=== PATIENT | male | born 1950 | race Caucasian/White ===

== ENCOUNTER 2017-02-17 12:39 | Outpatient (CLI) | payer MEDICARE ==
[~2017-02-17] VITALS: Ht 177.8 cm; Wt 94.3 kg
[~2017-02-17 12:39] MED LIST: DOXY100C2 PO; FAMO-119 PO; HYDR-87 PO; OMEP40CA36 PO; SUCR1ORA5 PO
[2017-02-17] MEDS ORDERED: ATOR10TA66 PO (12:42)
[2017-02-17] MEDS ORDERED: METF500T4 PO (12:42)
== END 2017-02-17 12:54 ==
LOC: PREOP 12:39
PROVIDERS: ATTEND Surgery
DX: Z01.818 Encounter for other preprocedural examination (principal); Z12.11 Encounter for screening for malignant neoplasm of colon

== ENCOUNTER 2017-02-21 08:51 | Day surgery (SDC) | payer MEDICARE ==
[~2017-02-21] VITALS: Ht 177.8 cm; Wt 94.3 kg
[~2017-02-21 08:51] MED LIST changes: +ATOR10TA66 PO; +METF500T4 PO
[2017-02-21] MEDS ORDERED: NS IV 500 ML 500 ML ONE (08:53)
[2017-02-21] MEDS ORDERED: NS IV 500 ML 500 ML IV PRN (09:25)
[2017-02-21 09:30] VITALS: BP 137/89
[2017-02-21] MEDS ORDERED: FLUMAZENIL (ROMAZICON) 0.1 MG/ML 5 ML VIAL INJ PRN (09:30)
[2017-02-21] MEDS ORDERED: NALOXONE 0.4 MG/ML 1 ML (NARCAN) VIAL IVP PRN (09:30)
--- NOTE | 2017-02-21 10:03 | Conscious Sedation/ASA ---
Conscious Sedation Pre-Proced Time Reviewed: 10:03 ASA Class: 2 Airway Mallampati Classification: ([place] appropriate class) I. II. III, IV Lungs Heart ASA score ASA 1: a normal healthy patient ASA 2: a patient with a mild systemic disease (mid diabetes, controlled hypertension, obesity ASA 3: a patient with a severe systemic disease that limits activity (angina , COPD, prior Myocardial infarction) ASA 4: a patient with an incapacitating disease that is a constant threat to life (CHF, renal failure) ASA 5: a moribund patient not expected to survive 24 hrs. (ruptured aneurysm) ASA 6: a declared brain patient whose organs are being harvested. For emergent operations, add the letter E after the classification Grade 1 Sedation Plan: Discussed options with patient/fam Note The patient is an appropriate candidate to undergo the planned procedure, sedation, and anesthesia. The patient immediately re-assessed prior to indication. MARGARET ARROYO MD Feb 21, 2017 10:03 am
[2017-02-21] MEDS ORDERED: MIDAZOLAM 2 MG/2 ML (VERSED) VIAL ONE ×3 (10:16)
[2017-02-21] MEDS ORDERED: fentaNYL INJECTION 100 MCG/2 ML AMP ONE (10:17)
[2017-02-21] MEDS: fentaNYL INJECTION 100 MCG/2 ML AMP IVP PRN ×2 (10:27→10:35)
[2017-02-21] MEDS: MIDAZOLAM 2 MG/2 ML (VERSED) VIAL IVP PRN ×2 (10:30→10:37)
--- NOTE | 2017-02-21 10:54 | Conscious Sedation/ASA ---
Conscious Sedation Pre-Proced Time Reviewed: 10:03 ASA Class: 2 Airway Mallampati Classification: ([place] appropriate class) I. II. III, IV Lungs Heart ASA score ASA 1: a normal healthy patient ASA 2: a patient with a mild systemic disease (mid diabetes, controlled hypertension, obesity ASA 3: a patient with a severe systemic disease that limits activity (angina , COPD, prior Myocardial infarction) ASA 4: a patient with an incapacitating disease that is a constant threat to life (CHF, renal failure) ASA 5: a moribund patient not expected to survive 24 hrs. (ruptured aneurysm) ASA 6: a declared brain patient whose organs are being harvested. For emergent operations, add the letter E after the classification Grade 2 Sedation Plan: Discussed options with patient/fam Note The patient is an appropriate candidate to undergo the planned procedure, sedation, and anesthesia. The patient immediately re-assessed prior to indication. MARGARET ARROYO MD Feb 21, 2017 10:54 am
--- NOTE | 2017-02-21 10:55 | Endoscopy Procedure Report ---
Endoscopy Report Date: Feb 21, 2017 Preoperative Diagnosis: Personal history of polyps. Family history of colon cancer Study Performed: Colonoscopy Procedure Instrument: Colonoscope Endo Procedure/Findings Findings 1.: Diverticulosis Recommendations: Recommendations: 1.: Colonscopy in 3 years Copy Copies To 1: ABIOLA TRINH MD, XAVIER M MD Feb 21, 2017 10:55 am
--- NOTE | 2017-02-21 10:56 | Discharge Inst-Simple/Standard ---
Discharge Inst-Standard Discharge Medications New, Converted or Re-Newed RX: Other Patient Instructions/Follow Up Plan of Care/Instructions/FU: Repeat colonoscopy in 3 years Activity as Tolerated: Yes Discharge Diet: ADA Diet MARGARET ARROYO MD Feb 21, 2017 10:56 am
[2017-02-21 11:00] VITALS: BP 99/64
[2017-02-21 11:30] VITALS: BP 133/90
--- NOTE | 2017-02-21 11:48 | OPERATIVE REPORT ---
DATE OF SERVICE: 02/21/2017 PROCEDURE: Screening colonoscopy. SURGEON: Margaret Arroyo MD INDICATION FOR PROCEDURE: This gentleman, with a family history of colon cancer and a personal history of polyps, returned for surveillance colonoscopy. Informed consent was obtained after reviewing the procedure in detail. DESCRIPTION OF PROCEDURE: He was placed in left lateral decubitus position and his vital signs were monitored. Conscious sedation was achieved using Versed and fentanyl. Examination of the perianal area revealed skin tags. Digital examination was otherwise unremarkable. The colonoscope was then introduced into the rectum and advanced all the way up to the cecum. The scope was then withdrawn slowly and the mucosa examined in a systematic fashion. FINDINGS: There are very few, scattered sigmoid diverticula. No recurrent polyps were found. He tolerated the procedure well and was taken back to the nursing area in a stable condition. IMPRESSION: Personal history of polyps and family history of colon cancer. No recurrent polyps identified at this time. Recommend repeating in 3 years. Job ID: [id number] DocumentID: [id number] Dictated Date: 02/21/2017 10:49:44 Disposition Clerk Date: 02/21/2017 11:19:15 Dictated By: MARGARET ARROYO MD MTDD
[2017-02-21 11:50] VITALS: BP 133/90
== END 2017-02-21 11:50 | disposition home or self-care (01) ==
LOC: ENDO 08:51
PROVIDERS: ATTEND Surgery
DX: Z12.11 Encounter for screening for malignant neoplasm of colon (principal); K57.30 Diverticulosis of large intestine without perforation or abscess without bleeding; Z80.0 Family history of malignant neoplasm of digestive organs; Z86.010 Personal history of colon polyps; E11.9 Type 2 diabetes mellitus without complications; E78.5 Hyperlipidemia, unspecified; Z79.899 Other long term (current) drug therapy
CPT/HCPCS: 82962

== ENCOUNTER 2018-11-06 06:25 | Emergency (ER) | payer MEDICARE ==
[~2018-11-06] VITALS: Ht 177.8 cm; Wt 95.3 kg
--- OUTSIDE RECORDS SUMMARY | 2018-11-06 06:33 | XMS REPORT | Continuity of Care Document ---
Author Author [facility] Organization [facility] Address Unknown Phone Unavailable Allergies Active Description Code Type Severity Reaction Onset Reported/Identified Relationship to Patient Clinical Status Yes No Known Drug Allergies [id number] Drug Allergy Unknown N/A 12/05/2015 Medications There is no data. Problems Date Dx Coded Attending Type Code Diagnosis Diagnosed By 12/08/2015 DINA CARR, MARGARET M Ot E11.9 12/08/2015 DINA CARR, MARGARET M Ot F17.210 12/08/2015 DINA CARR, MARGARET M Ot K20.9 12/08/2015 DINA CARR, MARGARET M Ot T18.128A 12/08/2015 DINA CARR, MARGARET M Ot Y92.009 12/10/2015 DINA CARR, MARGARET M Ot E11.9 12/10/2015 DINA CARR, MARGARET M Ot F17.210 12/10/2015 DINA CARR, MARGARET M Ot K20.9 12/10/2015 DINA CARR, MARGARET M Ot T18.128A 12/10/2015 DINA CARR, MARGARET M Ot Y92.009 12/16/2015 DINA CARR, MARGARET M Ot E11.9 12/16/2015 DINA CARR, MARGARET M Ot F17.210 12/16/2015 DINA CARR, MARGARET M Ot K20.9 12/16/2015 DINA CARR, MARGARET M Ot T18.128A 12/16/2015 DINA CARR, MARGARET M Ot Y92.009 12/26/2015 DINA CARR, MARGARET M Ot E11.9 12/26/2015 DINA CARR, MARGARET M Ot F17.210 12/26/2015 DINA CARR, MARGARET M Ot K20.9 12/26/2015 DINA CARR, MARGARET M Ot T18.128A 12/26/2015 DINA CARR, MARGARET M Ot Y92.009 05/19/2016 DINA CARR, MARGARET M Ot E11.9 TYPE 2 DIABETES MELLITUS WITHOUT COMPLIC 05/19/2016 DINA CARR, MARGARET Vergara Ot F17.210 NICOTINE DEPENDENCE, CIGARETTES, UNCOMPL 05/19/2016 DINA CARR, MARGARET Vergara Ot K20.9 ESOPHAGITIS, UNSPECIFIED 05/19/2016 MARGARET ARROYO MD Ot T18.128A FOOD IN ESOPHAGUS CAUSING OTHER INJURY, 05/19/2016 MARGARET ARROYO MD Ot Y92.[address] [facility] [address] IN [facility] NON-INSTITUT (PRIVATE 05/20/2016 GELLENDER DO, JOSEFINA A Ot R06.02 SHORTNESS OF BREATH 05/20/2016 GELLENDER DO, JOSEFINA A Ot R06.2 WHEEZING 05/25/2016 GELLENDER DO, JOSEFINA A Ot R06.02 SHORTNESS OF BREATH 05/25/2016 GELLENDER DO, JOSEFINA A Ot R06.2 WHEEZING 06/01/2016 GELLENDER DO, JOSEFINA A Ot R06.02 SHORTNESS OF BREATH 06/01/2016 GELLENDER DO, JOSEFINA A Ot R06.2 WHEEZING 07/28/2016 GWYN TIJERINA DO, Ot E11.9 TYPE 2 DIABETES MELLITUS WITHOUT COMPLIC 07/28/2016 GWYN TIJERINA DO, Ot F17.210 NICOTINE DEPENDENCE, CIGARETTES, UNCOMPL 07/28/2016 GWYN TIJERINA DO Ot J18.9 PNEUMONIA, UNSPECIFIED ORGANISM 07/28/2016 GWYN TIJERINA DO Ot K76.0 FATTY (CHANGE OF) LIVER, NOT ELSEWHERE C 07/28/2016 GWYN TIJERINA DO Ot K85.90 ACUTE PANCREATITIS WITHOUT NECROSIS OR I 07/28/2016 GWYN TIJERINA DO Ot M54.5 LOW BACK PAIN 07/28/2016 GWYN TIJERINA DO Ot R09.1 PLEURISY 07/28/2016 GWYN TIJERINA DO Ot R11.0 NAUSEA 08/03/2016 MARGARET ARROYO MD Ot E11.9 TYPE 2 DIABETES MELLITUS WITHOUT COMPLIC 08/03/2016 MARGARET ARROYO MD Ot F17.210 NICOTINE DEPENDENCE, CIGARETTES, UNCOMPL 08/03/2016 MARGARET ARROYO MD Ot K20.9 ESOPHAGITIS, UNSPECIFIED 08/03/2016 MARGARET ARROYO MD Ot T18.128A FOOD IN ESOPHAGUS CAUSING OTHER INJURY, 08/03/2016 MARGARET ARROYO MD Ot Y92.[address] [facility] [address] IN [facility] NON-[facility] (PRIVATE 08/03/2016 GELAUBREY FERREIRA, JOSEFINA A Ot R06.02 SHORTNESS OF BREATH 08/03/2016 JOSEFINA PRITCHARD DO A Ot R06.2 WHEEZING 08/07/2016 GWYN TIJERINA DO Ot E11.9 TYPE 2 DIABETES MELLITUS WITHOUT COMPLIC 08/07/2016 GWYN TIJERINA DO Ot F17.210 NICOTINE DEPENDENCE, CIGARETTES, UNCOMPL 08/07/2016 GWYN TIJERINA DO Ot J18.9 PNEUMONIA, UNSPECIFIED ORGANISM 08/07/2016 GWYN TIJERINA DO Ot K76.0 FATTY (CHANGE OF) LIVER, NOT ELSEWHERE C 08/07/2016 GWYN TIJERINA DO Ot K85.90 ACUTE PANCREATITIS WITHOUT NECROSIS OR I 08/07/2016 GWYN TIJERINA DO Ot M54.5 LOW BACK PAIN 08/07/2016 GWYN TIJERINA DO Ot R09.1 PLEURISY 08/07/2016 GWYN TIJERINA DO Ot R11.0 NAUSEA 02/17/2017 MARGARET ARROYO MD Ot E11.9 TYPE 2 DIABETES MELLITUS WITHOUT COMPLIC 02/17/2017 MARGARET ARROYO MD, Ot F17.210 NICOTINE DEPENDENCE, CIGARETTES, UNCOMPL 02/17/2017 MARGARET ARROYO MD Ot K20.9 ESOPHAGITIS, UNSPECIFIED 02/17/2017 MARGARET ARROYO MD Ot T18.128A FOOD IN ESOPHAGUS CAUSING OTHER INJURY, 02/17/2017 MARGARET ARROYO MD Ot Y92.[address] [facility] [address] IN [facility] NON-[facility] (PRIVATE 02/17/2017 JOSEFINA PRITCHARD DO A Ot R06.02 SHORTNESS OF BREATH 02/17/2017 JOSEFINA PRITCHARD DO A Ot R06.2 WHEEZING 02/17/2017 MARGARET ARROYO MD Ot Z01.818 ENCOUNTER FOR OTHER PREPROCEDURAL EXAMIN 02/17/2017 MARGARET ARROYO MD Ot Z12.11 ENCOUNTER FOR SCREENING FOR MALIGNANT NE 02/21/2017 MARGARET ARROYO MD Ot E11.9 TYPE 2 DIABETES MELLITUS WITHOUT COMPLIC 02/21/2017 MARGARET ARROYO MD Ot F17.210 NICOTINE DEPENDENCE, CIGARETTES, UNCOMPL 02/21/2017 MARGARET ARROYO MD Ot K20.9 ESOPHAGITIS, UNSPECIFIED 02/21/2017 MARGARET ARROYO MD, Ot T18.128A FOOD IN ESOPHAGUS CAUSING OTHER INJURY, 02/21/2017 MARGARET ARROYO MD Ot Y92.[address] [facility] [address] IN [facility] NON-[facility] (PRIVATE 02/21/2017 JOSEFINA PRITCHARD DO Ot R06.02 SHORTNESS OF BREATH 02/21/2017 JOSEFINA PRITCHARD DO Ot R06.2 WHEEZING 02/21/2017 MARGARET ARROYO MD, Ot E11.9 TYPE 2 DIABETES MELLITUS WITHOUT COMPLIC 02/21/2017 MARAGRET ARROYO MD, Ot E78.5 HYPERLIPIDEMIA, UNSPECIFIED 02/21/2017 MARGARET ARROYO MD, Ot K57.30 DVRTCLOS OF LG INT W/O PERFORATION OR AB 02/21/2017 MARGARET ARROYO MD Ot Z12.11 ENCOUNTER FOR SCREENING FOR MALIGNANT NE 02/21/2017 MARGARET ARROYO MD, Ot Z79.899 OTHER CORRECTION (CURRENT) DRUG THERAPY 02/21/2017 MARGARET ARROYO MD Ot Z80.0 FAMILY HISTORY OF MALIGNANT NEOPLASM OF 02/21/2017 MARGARET ARROYO MD, Ot Z86.010 PERSONAL HISTORY OF COLONIC POLYPS 02/27/2017 MARGARET ARROYO MD, Ot E11.9 TYPE 2 DIABETES MELLITUS WITHOUT COMPLIC 02/27/2017 MARGARET ARROYO MD, Ot E78.5 HYPERLIPIDEMIA, UNSPECIFIED 02/27/2017 MARGARET ARROYO MD, Ot K57.30 DVRTCLOS OF LG INT W/O PERFORATION OR AB 02/27/2017 MARGARET ARROYO MD Ot Z12.11 ENCOUNTER FOR SCREENING FOR MALIGNANT NE 02/27/2017 MARGARET ARROYO MD Ot 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 Results Test Result Range Complete blood count (CBC) with automated white blood cell (WBC) differential - 07/28/16 07:21 Blood leukocytes automated count (number/volume) 9.1 10*3/uL 4.3-11.0 Blood erythrocytes automated count (number/volume) 4.45 10*6/uL 4.35-5.85 Venous blood hemoglobin measurement (mass/volume) 14.6 g/dL 13.3-17.7 Blood hematocrit (volume fraction) 42 % 40-54 Automated erythrocyte mean corpuscular volume 94 [foz_us] 80-99 Automated erythrocyte mean corpuscular hemoglobin (mass per erythrocyte) 33 pg 25-34 Automated erythrocyte mean corpuscular hemoglobin concentration measurement ( mass/volume) 35 g/dL 32-36 Automated erythrocyte distribution width ratio 12.6 % 10.0-14.5 Automated blood platelet count (count/volume) 229 10*3/uL 130-400 Automated blood platelet mean volume measurement 10.0 [foz_us] 7.4-10.4 Automated blood neutrophils/100 leukocytes 60 % 42-75 Automated blood lymphocytes/100 leukocytes 29 % 12-44 Blood monocytes/100 leukocytes 7 % 0-12 Automated blood eosinophils/100 leukocytes 4 % 0-10 Automated blood basophils/100 leukocytes 1 % 0-10 Blood neutrophils automated count (number/volume) 5.4 10*3 1.8-7.8 Blood lymphocytes automated count (number/volume) 2.6 10*3 1.0-4.0 Blood monocytes automated count (number/volume) 0.6 10*3 0.0-1.0 Automated eosinophil count 0.4 10*3/uL 0.0-0.3 Automated blood basophil count (count/volume) 0.1 10*3/uL 0.0-0.1 Capillary blood glucose measurement by glucometer (mass/volume) - 02/21/17 09: 17 Capillary blood glucose measurement by glucometer (mass/volume) 116 mg/dL 70-110 Encounters ACCT No. Visit Date/Time Discharge Status Pt. Type Provider Facility Loc./Unit Complaint [id number] 02/21/2017 08:51:00 02/21/2017 11:50:00 DIS Outpatient MARGARET ARROYO MD [facility] ENDO SCREENING [id number] 02/17/2017 12:39:00 02/17/2017 12:54:00 DIS Outpatient MARGARET ARROYO MD [facility] PREOP SCREENING COLONOSCOPY [id number] 07/28/2016 06:30:00 07/28/2016 10:48:00 DIS Emergency LILLIANA DO, GWYN D [facility] ER BACK PAIN [id number] 05/19/2016 12:40:00 05/19/2016 23:59:59 CLS Outpatient JOSEFINA PRITCHARD DO [facility] RAD SOB,WHEEZING [id number] 12/05/2015 19:36:00 12/05/2015 23:59:59 CLS Outpatient DINA CARR, MARGARET Vergara [facility] SDC FOREIGN BODY
[2018-11-06] MEDS ORDERED: NS IV 1000 ML 1,000 ML IV SCH ×2 (07:08)
[2018-11-06] MEDS ORDERED: cefTRIAXone FOR IV USE 1,000 MG in WATER (STERILE) FOR INJECTION 10 ML IV ONE (07:15)
[2018-11-06] MEDS ORDERED: KETOROLAC 30 MG/ML VIAL IVP ONE (07:15)
[2018-11-06] MEDS ORDERED: ASPIRIN 81 MG CHEW (CHILDREN'S ASA) PO ONE (07:15)
[2018-11-06] MEDS ORDERED: AZITHROMYCIN INJECTION 500 MG in NS (IVPB) 250 ML IV ONE (07:15)
--- NOTE | 2018-11-06 07:21 | ED Respiratory ---
General Stated Complaint: FEVER Source: patient Exam Limitations: no limitations History of Present Illness Date Seen by Provider: Nov 06, 2018 Time Seen by Provider: 06:59 Initial Comments The patient presents to ER by private conveyance with chief complaint of 5 days of fever with a MAXIMUM TEMPERATURE of 102 today. He has not taken any antipyretics today but he has been using Tylenol with good effect. He says yesterday he was not able to get the fever to break despite Tylenol. He is taking 2 tablets every 6 hours. He does not have any heart or lung disease but he does have diabetes and he said his blood sugars have been running very high. He takes atorvastatin for borderline lipid disease. No thyroid disorder. He quit smoking 3 weeks ago voluntarily. He does not take any other over-the- counter or breathing treatments. He has not seen anybody about this yet. He says when he coughs he has pain that is sharp and different from when he had pneumonia in the middle of his chest that does not radiate. No nausea sweats but he does have malaise, body aches and decreased appetite and fluid intake. Allergies and Home Medications Allergies Coded Allergies: No Known Drug Allergies (Verified , 12/05/15) Home Medications Atorvastatin Calcium 10 Mg Tablet, 10 MG PO HS, (Reported) Metformin HCl 500 Mg Tablet, 500 MG PO DAILY, (Reported) Patient Home Medication List Home Medication List Reviewed: Yes Review of Systems Review of Systems Constitutional: chills; No diaphoresis; fever, malaise, weakness EENTM: No ear discharge, No ear pain Respiratory: cough; No phlegm, No short of breath, No wheezing Cardiovascular: chest pain; No edema, No Hx of Intervention, No palpitations, No vascular heart diseas Gastrointestinal: No abdominal pain, No constipation, No diarrhea Genitourinary: No discharge, No dysuria Musculoskeletal: No back pain, No joint pain Past Lbftila-Soszwb-Gxkmuq Hx Patient Social History Alcohol Use: Denies Use Recreational Drug Use: No Smoking Status: Former Smoker Type Used: Cigarettes Former Smoker, Quit: Oct 16, 2018 Recent Foreign Travel: No Contact w/Someone Who Travel: No Recent Hopitalizations: No Seasonal Allergies Seasonal Allergies: No Past Medical History Adenoidectomy, Appendectomy, Eye Surgery, Tonsillectomy High Cholesterol Reproductive Disorders: No Polyps Diabetes, 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 0.0oz. 94.664674aq; 29.8 BMI Method:Stated General Appearance: WD/WN, mild distress Eyes: Bilateral Eye Normal Inspection, Bilateral Eye PERRL, Bilateral Eye EOMI HEENT: PERRL/EOMI, normal ENT inspection, TMs normal, pharynx normal Neck: non-tender, full range of motion, supple, normal inspection, lymphadenopathy (R), lymphadenopathy (L) (shotty bilateral anterior cervical lymphadenopathy) Respiratory: chest non-tender, lungs clear, normal breath sounds, no respiratory distress, no accessory muscle use Cardiovascular: normal peripheral pulses, regular rate, rhythm, no edema, tachycardia (115) Gastrointestinal: normal bowel sounds, non tender, soft Focused Exam Lactate Level 11/06/18 07:15: Lactic Acid Level 0.90 Lactic Acid Level Laboratory Tests Test 11/06/18 07:15 Lactic Acid Level 0.90 MMOL/L (0.50-2.00) Progress/Results/Core Measures Suspected Sepsis SIRS Temperature: Pulse: Respiratory Rate: Laboratory Tests 11/06/18 07:15: White Blood Count 5.8 Blood Pressure / Mean: 11/06/18 07:15: Lactic Acid Level 0.90 Laboratory Tests 11/06/18 07:15: Creatinine 1.29, INR Comment 1.0, Platelet Count 162, Total Bilirubin 0.3 Results/Orders Lab Results Laboratory Tests Test 11/06/18 07:15 Range/Units White Blood Count 5.8 4.3-11.0 10^3/uL Red Blood Count 4.71 4.35-5.85 10^6/uL Hemoglobin 15.2 13.3-17.7 G/DL Hematocrit 45 40-54 % Mean Corpuscular Volume 95 80-99 FL Mean Corpuscular Hemoglobin 32 25-34 PG Mean Corpuscular Hemoglobin Concent 34 32-36 G/DL Red Cell Distribution Width 13.3 10.0-14.5 % Platelet Count 162 130-400 10^3/uL Mean Platelet Volume 9.8 7.4-10.4 FL Neutrophils (%) (Auto) 68 42-75 % Lymphocytes (%) (Auto) 21 12-44 % Monocytes (%) (Auto) 9 0-12 % Eosinophils (%) (Auto) 1 0-10 % Basophils (%) (Auto) 1 0-10 % Neutrophils # (Auto) 3.9 1.8-7.8 X 10^3 Lymphocytes # (Auto) 1.2 1.0-4.0 X 10^3 Monocytes # (Auto) 0.5 0.0-1.0 X 10^3 Eosinophils # (Auto) 0.1 0.0-0.3 10^3/uL Basophils # (Auto) 0.0 0.0-0.1 10^3/uL Prothrombin Time 13.4 12.2-14.7 SEC INR Comment 1.0 0.8-1.4 Activated Partial Thromboplast Time 43 H 24-35 SEC Sodium Level 135 135-145 MMOL/L Potassium Level 4.4 3.6-5.0 MMOL/L Chloride Level 107 98-107 MMOL/L Carbon Dioxide Level 21 21-32 MMOL/L Anion Gap 7 5-14 MMOL/L Blood Urea Nitrogen 19 H 7-18 MG/DL Creatinine 1.29 0.60-1.30 MG/DL Estimat Glomerular Filtration Rate 55 BUN/Creatinine Ratio 15 Glucose Level 136 H 70-105 MG/DL Lactic Acid Level 0.90 0.50-2.00 MMOL/L Calcium Level 10.1 8.5-10.1 MG/DL Corrected Calcium 10.0 8.5-10.1 MG/DL Magnesium Level 2.1 1.8-2.4 MG/DL Total Bilirubin 0.3 0.1-1.0 MG/DL Aspartate Amino Transf (AST/SGOT) 25 5-34 U/L Alanine Aminotransferase (ALT/SGPT) 22 0-55 U/L Alkaline Phosphatase 59 40-136 U/L Myoglobin 146.3 H 10.0-92.0 NG/ML Troponin I < 0.028 <0.028 NG/ML Total Protein 7.2 6.4-8.2 GM/DL Albumin 4.1 3.2-4.5 GM/DL Micro Results Microbiology 11/06/18 Influenza Types A,B Antigen (DAX) - Final, Complete My Orders Orders - TREVOR QUIROS Cbc With Automated Diff (11/06/18 07:08) Magnesium (11/06/18 07:08) Ekg Tracing (11/06/18 07:08) Cardiac Profile 1 (11/06/18 07:08) Comprehensive Metabolic Panel (11/06/18 07:08) Myoglobin Serum (11/06/18 07:08) Protime With Inr (11/06/18 07:08) Partial Thromboplastin Time (11/06/18 07:08) O2 (11/06/18 07:08) Monitor-Rhythm Ecg Trace Only (11/06/18 07:08) Lipid Panel (11/07/18 06:00) Aspirin Chewable Tablet (Baby Aspirin Ch (11/06/18 07:15) Blood Culture (11/06/18 07:08) Sputum Culture (11/06/18 07:08) Saline Lock/Iv-Start (11/06/18 07:08) Saline Lock/Iv-Start (11/06/18 07:08) Vital Signs Adult Sepsis Patie Q15M (11/06/18 07:08) O2 (11/06/18 07:08) Remove Rings In Anticipation O (11/06/18 07:08) Lactic Acid Analyzer (11/06/18 07:08) Influenza A And B Antigens (11/06/18 07:08) Ns Iv 1000 Ml (Sodium Chloride 0.9%) (11/06/18 07:08) Ceftriaxone For Iv Use (Rocephin For I (11/06/18 07:15) Azithromycin Injection (Zithromax Inject (11/06/18 07:15) Chest Pa/Lat (2 View) (11/06/18 07:08) Ketorolac Injection (Toradol Injection) (11/06/18 07:15) Saline Lock/Iv-Start (11/06/18 07:08) Ns Iv 1000 Ml (Sodium Chloride 0.9%) (11/06/18 07:08) Medications Given in ED Current Medications Medications Dose Ordered Sig/Adina Route Start Time Stop Time Status Last Admin Dose Admin Aspirin 324 mg ONCE ONCE PO 11/06/18 07:15 11/06/18 07:16 DC 11/06/18 07:25 324 MG Ketorolac Tromethamine 30 mg ONCE ONCE IVP 11/06/18 07:15 11/06/18 07:16 DC 11/06/18 07:25 30 MG Vital Signs/I&O 11/06/18 07:00 Temp 100.6 Pulse 107 Resp 20 B/P (MAP) 170/101 (124) Pulse Ox 94 Capillary Refill : Progress Note #1: Time: 07:19 Progress Note Upper respiratory/bronchitis could be influenza. However he is tachycardic and has a fever so plan to do a septic workup given him some fluids since he is dehydrated by clinical exam/history. We'll give him some Toradol to help with body aches and fever. We'll check a blood sugar. He has been having the same chest pain on deep inspiration or cough for the past 5 days a single troponin should rule out myocarditis/pericarditis. We'll get an EKG and give him some aspirin. 2 view chest x-ray. ED ACS 14 points. Low risk. If the patient also has: (1) EKG without new ischemic changes and (2) negative initial and 2-hour troponins, then this patient is safe for discharge to early outpatient follow-up investigation (or proceed to earlier inpatient testing). If EKG with ischemic changes or positive troponin, they are not low risk and require normal risk stratification. Progress Note #2: Time: 09:49 Progress Note Patient's feeling much better he is received his IV fluids and while we've offered him observation stay he would prefer to go home and do symptomatic management at home. There is no reason that he would need to be in the hospital at this time. ECG Initial ECG Impression Date: Nov 06, 2018 Initial ECG Impression Time: 07:34 Initial ECG Rate: 99 Initial ECG Rhythm: Normal Sinus Initial ECG Intervals: Normal Initial ECG Impression: Normal Initial ECG Comparisson: No Previous ECG Available Comment No ST elevation or depression. Diagnostic Imaging Diagonstic Imaging: Xray Plain Films/CT/US/NM/MRI: chest (2 view) Comments NAME: CAL THOMAS REC#: [id number] PT STATUS: REG ER : 1950 PHYSICIAN: TREVOR QUIROS MD ADMIT DATE: 11/06/18/ER Draft Date of Exam:11/06/18 CHEST PA/LAT (2 VIEW) INDICATION: Fever and cough. PA and lateral chest obtained at 8:00 a.m. and compared to 05/19/16. FINDINGS: Heart is normal in size. Mediastinal silhouette is unremarkable. The lungs show chronic appearing increased interstitial markings. There is no acute consolidation or pneumothorax or pleural fluid. IMPRESSION: Chronic appearing increased interstitial markings. No acute consolidation or pleural fluid. Dictated on workstation # [id number] Dict: 11/06/18 0827 Trans: 11/06/18 0839 KB [id number] Interpreted by: CAL LIMA MD Electronically signed by: Reviewed: Reviewed by Me Departure Impression Primary Impression: Influenza Disposition: 01 HOME, SELF-CARE Condition: Stable Departure-Patient Inst. Decision time for Depature: 08:42 Referrals: ABIOLA TRINH MD (PCP/Family) Primary Care Physician Patient Instructions: Flu, Adult (DC) Add. Discharge Instructions: Drink lots of fluids. Tylenol 1000 mg every 8 hours in addition to ibuprofen 800 mg every 8 hours as needed for body aches or fever or malaise. Expect to be sick up to 2 weeks. Follow-up with primary care as necessary. TREVOR QUIROS Nov 06, 2018 07:21
[2018-11-06 07:28] LABS: BASOPHILS % (AUTO) 1 % (0-10); EOSINOPHILS # (AUTO) 0.1 10^3/uL (0.0-0.3); EOSINOPHILS % (AUTO) 1 % (0-10); HEMATOCRIT 45 % (40-54); HEMOGLOBIN 15.2 G/DL (13.3-17.7); LYMPHOCYTES # (AUTO) 1.2 X 10^3 (1.0-4.0); LYMPHOCYTES % (AUTO) 21 % (12-44); MEAN CORPUSCULAR HEMOGLOBIN 32 PG (25-34); MEAN CORPUSCULAR HGB CONC 34 G/DL (32-36); MEAN CORPUSCULAR VOLUME 95 FL (80-99); MEAN PLATELET VOLUME 9.8 FL (7.4-10.4); MONOCYTES # (AUTO) 0.5 X 10^3 (0.0-1.0); MONOCYTES % (AUTO) 9 % (0-12); NEUTROPHILS # (AUTO) 3.9 X 10^3 (1.8-7.8); NEUTROPHILS % (AUTO) 68 % (42-75); PLATELET COUNT 162 10^3/uL (130-400); RED CELL DISTRIBUTION WIDTH 13.3 % (10.0-14.5); WHITE BLOOD COUNT 5.8 10^3/uL (4.3-11.0)
[2018-11-06 07:39] LABS: PROTHROMBIN TIME PATIENT 13.4 SEC (12.2-14.7)
[2018-11-06 07:48] LABS: ALANINE AMINOTRANSFERASE 22 U/L (0-55); ALBUMIN 4.1 GM/DL (3.2-4.5); ALKALINE PHOSPHATASE 59 U/L (40-136); BILIRUBIN,TOTAL 0.3 MG/DL (0.1-1.0); BUN/CREATININE RATIO 15; CALCIUM 10.1 MG/DL (8.5-10.1); CARBON DIOXIDE 21 MMOL/L (21-32); CHLORIDE 107 MMOL/L (98-107); CREATININE SERUM 1.29 MG/DL (0.60-1.30); GFR ESTIMATED 55; GLUCOSE 136 MG/DL (70-105); MAGNESIUM 2.1 MG/DL (1.8-2.4); POTASSIUM 4.4 MMOL/L (3.6-5.0); SODIUM 135 MMOL/L (135-145); TOTAL PROTEIN 7.2 GM/DL (6.4-8.2)
[2018-11-06 07:55] LABS: MYOGLOBIN SERUM 146.3 NG/ML (10.0-92.0)
--- NOTE | 2018-11-06 08:40 | Diagnostic Imaging Report ---
INDICATION: Fever and cough. PA and lateral chest obtained at 8:00 a.m. and compared to 05/19/16. FINDINGS: Heart is normal in size. Mediastinal silhouette is unremarkable. The lungs show chronic appearing increased interstitial markings. There is no acute consolidation or pneumothorax or pleural fluid. IMPRESSION: Chronic appearing increased interstitial markings. No acute consolidation or pleural fluid. Dictated by: Dictated on workstation # [id number]
[2018-11-06 09:52] VITALS: BP 119/68
== END 2018-11-06 09:54 | disposition home or self-care (01) ==
LOC: EDUNIT# 06:25 → ER 06:26
DX: J11.1 Influenza due to unidentified influenza virus with other respiratory manifestations (principal); E78.00 Pure hypercholesterolemia, unspecified; E11.9 Type 2 diabetes mellitus without complications; Z90.49 Acquired absence of other specified parts of digestive tract; Z86.010 Personal history of colon polyps; Z87.891 Personal history of nicotine dependence; Z79.84 Long term (current) use of oral hypoglycemic drugs; Z87.01 Personal history of pneumonia (recurrent); Z90.89 Acquired absence of other organs
CPT/HCPCS: 36415; 71046; 80053; 83605; 83735; 83874; 84484; 85025; 85610; 85730; 87040; 87804; 93005; 93041; 96374

== ENCOUNTER → 2019-06-12 | Outpatient (CLI) | payer MEDICARE ==
[~2019-06-12] MED LIST changes: +METF-397 PO; -METF500T4 PO
== END ==
LOC: WOUNDCARE 07:57
PROVIDERS: ATTEND Nurse Practitioner
DX: E11.628 Type 2 diabetes mellitus with other skin complications (principal); L97.521 Non-pressure chronic ulcer of other part of left foot limited to breakdown of skin; B35.3 Tinea pedis; Z72.0 Tobacco use
CPT/HCPCS: 99214

== ENCOUNTER → 2019-06-21 | Outpatient (CLI) | payer MEDICARE | LOC: WOUNDCARE 10:24 | PROVIDERS: ATTEND Nurse Practitioner | DX: L97.521 Non-pressure chronic ulcer of other part of left foot limited to breakdown of skin (principal); E11.628 Type 2 diabetes mellitus with other skin complications; E11.52 Type 2 diabetes mellitus with diabetic peripheral angiopathy with gangrene; B35.3 Tinea pedis; Z72.0 Tobacco use | CPT/HCPCS: 97597 ==

== ENCOUNTER → 2019-06-28 | Outpatient (CLI) | payer MEDICARE | LOC: WOUNDCARE 10:25 | PROVIDERS: ATTEND Nurse Practitioner | DX: E11.622 Type 2 diabetes mellitus with other skin ulcer (principal); L97.521 Non-pressure chronic ulcer of other part of left foot limited to breakdown of skin; B35.3 Tinea pedis; Z72.0 Tobacco use | CPT/HCPCS: 99212 ==

== ENCOUNTER → 2019-07-05 | Outpatient (CLI) | payer MEDICARE | LOC: WOUNDCARE 10:25 | PROVIDERS: ATTEND Nurse Practitioner | DX: E11.622 Type 2 diabetes mellitus with other skin ulcer (principal); L97.521 Non-pressure chronic ulcer of other part of left foot limited to breakdown of skin; B35.3 Tinea pedis; Z72.0 Tobacco use | CPT/HCPCS: 99212 ==

== ENCOUNTER 2019-07-19 04:09 | Emergency (ER) | payer MEDICARE ==
[~2019-07-19] VITALS: Ht 172 cm; Wt 80.0 kg
[2019-07-19] MEDS ORDERED: NS (IVPB) 250 ML ONE (04:27)
[2019-07-19] MEDS ORDERED: NS (IVPB) 250 ML IV ONE (04:27)
[2019-07-19] MEDS ORDERED: RT-ALBUTEROL/IPRATROPIUM 3 ML (DUONEB) VIAL ONE (04:28)
[2019-07-19] MEDS ORDERED: RT-ALBUTEROL/IPRATROPIUM 3 ML (DUONEB) VIAL INH ONE (04:30)
--- NOTE | 2019-07-19 04:31 | ED Respiratory ---
General Stated Complaint: HIGH BLOOD PRESSURE Source: patient Exam Limitations: no limitations History of Present Illness Date Seen by Provider: Jul 19, 2019 Time Seen by Provider: 04:16 Initial Comments The patient presents to ER by private conveyance with chief complaint of high blood pressure this evening. He says around midnight he was just sitting in his chair and started to get some shortness of breath numbness and tingling around his mouth and fingertips and subjective his blood pressure was elevated around 200/100. He has a history one ago of having a panic attack similar to this. She had a cough for the past 3 or 4 days no fevers or chills cough has been productive. He was told by one doctor he might have COPD but has had no pulmonary function testing and smoker pack cigarettes per day. He does not use recreational drugs and alcohol. He follows with Dr. Trinh. He went to bed and woke up again around 3 and decided to recheck his blood pressure and it still in the 170-180 range systolic. He says his blood pressure is usually okay and he recently had a primary care appointment in which was fine. He does take metformin 500 mg a day and has a last A1c of 6.1. He also takes atorvastatin 10 mg. He decided to have a couple drinks last few days and so he has helped these 2 medicines for the past 2 days. No other significant medical history. He is not on any antipyretics. For the past couple days also had some upper respiratory symptoms or runny nose nasal congestion. Allergies and Home Medications Allergies Coded Allergies: No Known Drug Allergies (Verified , 12/05/15) Home Medications Albuterol Sulfate 1 Puff Puff, 2 PUFF IH Q4H PRN for WHEEZING 1 PUFF = 90 MCG Prescribed by: TREVOR QUIROS on 07/19/19 0521 Atorvastatin Calcium 10 Mg Tablet, 10 MG PO HS, (Reported) Metformin HCl 500 Mg Tablet, 500 MG PO DAILY, (Reported) Patient Home Medication List Home Medication List Reviewed: Yes Review of Systems Review of Systems Constitutional: No chills, No fever; malaise EENTM: No ear discharge, No ear pain Respiratory: cough; No hemoptysis, No orthopnea; phlegm, short of breath, wheezing Cardiovascular: No chest pain, No Hx of Intervention, No palpitations Gastrointestinal: No abdominal pain, No nausea, No vomiting Genitourinary: No discharge, No dysuria Musculoskeletal: No back pain, No joint pain Past Tcnbbcx-[id number]-Vgxjwi Hx Patient Social History Alcohol Use: Occasionally Uses Recreational Drug Use: No Smoking Status: Current Everyday Smoker Type Used: Cigarettes (1 ppd) Former Smoker, Quit: Oct 16, 2018 Recent Foreign Travel: No Contact w/Someone Who Travel: No Recent Hopitalizations: No Seasonal Allergies Seasonal Allergies: No Past Medical History Adenoidectomy, Appendectomy, Eye Surgery, Tonsillectomy High Cholesterol Reproductive Disorders: No Polyps Diabetes, Non-Insulin dep Cataract Loss of Vision: Bilateral Hearing Impairment: Denies Adverse Reaction/Blood Tranf: No Family Medical History No Pertinent Family Hx Physical Exam Vital Signs - First Documented 07/19/19 04:10 Temp 35.9 Pulse 95 Resp 18 B/P (MAP) 183/101 (128) Pulse Ox 95 O2 Delivery Room Air Capillary Refill : Height: 5'10.00" Weight: 210lbs. 0.0oz. 95.687919bo; 29.8 BMI Method:Stated General Appearance: WD/WN, no apparent distress Eyes: Bilateral Eye Normal Inspection, Bilateral Eye PERRL, Bilateral Eye EOMI HEENT: PERRL/EOMI; No pharynx normal (oropharynx is mildly dry) Neck: full range of motion, normal inspection Respiratory: no accessory muscle use; No rales; rhonchi (bilateral), wheezing ( left worse than right.), expiration Cardiovascular: normal peripheral pulses, regular rate, rhythm (80s) Neurologic/Psychiatric: alert, normal mood/affect, oriented x 3 Skin: normal color, warm/dry Progress/Results/Core Measures Suspected Sepsis SIRS Temperature: Pulse: Respiratory Rate: Laboratory Tests 07/19/19 04:25: White Blood Count 6.5 Blood Pressure / Mean: Laboratory Tests 07/19/19 04:25: Creatinine 1.14, Platelet Count 230, Total Bilirubin 0.3 Results/Orders Lab Results Laboratory Tests Test 07/19/19 04:25 Range/Units White Blood Count 6.5 4.3-11.0 10^3/uL Red Blood Count 4.63 4.35-5.85 10^6/uL Hemoglobin 15.0 13.3-17.7 G/DL Hematocrit 44 40-54 % Mean Corpuscular Volume 95 80-99 FL Mean Corpuscular Hemoglobin 32 25-34 PG Mean Corpuscular Hemoglobin Concent 34 32-36 G/DL Red Cell Distribution Width 13.1 10.0-14.5 % Platelet Count 230 130-400 10^3/uL Mean Platelet Volume 9.8 7.4-10.4 FL Neutrophils (%) (Auto) 46 42-75 % Lymphocytes (%) (Auto) 38 12-44 % Monocytes (%) (Auto) 9 0-12 % Eosinophils (%) (Auto) 7 0-10 % Basophils (%) (Auto) 1 0-10 % Neutrophils # (Auto) 3.0 1.8-7.8 X 10^3 Lymphocytes # (Auto) 2.5 1.0-4.0 X 10^3 Monocytes # (Auto) 0.6 0.0-1.0 X 10^3 Eosinophils # (Auto) 0.4 H 0.0-0.3 10^3/uL Basophils # (Auto) 0.1 0.0-0.1 10^3/uL Sodium Level 140 135-145 MMOL/L Potassium Level 4.3 3.6-5.0 MMOL/L Chloride Level 110 H 98-107 MMOL/L Carbon Dioxide Level 19 L 21-32 MMOL/L Anion Gap 11 5-14 MMOL/L Blood Urea Nitrogen 15 7-18 MG/DL Creatinine 1.14 0.60-1.30 MG/DL Estimat Glomerular Filtration Rate > 60 BUN/Creatinine Ratio 13 Glucose Level 118 H 70-105 MG/DL Calcium Level 10.5 H 8.5-10.1 MG/DL Corrected Calcium 10.3 H 8.5-10.1 MG/DL Total Bilirubin 0.3 0.1-1.0 MG/DL Aspartate Amino Transf (AST/SGOT) 16 5-34 U/L Alanine Aminotransferase (ALT/SGPT) 21 0-55 U/L Alkaline Phosphatase 63 40-136 U/L Troponin I < 0.028 <0.028 NG/ML C-Reactive Protein High Sensitivity 0.38 0.00-0.50 MG/DL Total Protein 7.4 6.4-8.2 GM/DL Albumin 4.2 3.2-4.5 GM/DL My Orders Orders - TREVOR QUIROS Cbc With Automated Diff (07/19/19 04:27) Hs C Reactive Protein (07/19/19 04:27) Comprehensive Metabolic Panel (07/19/19 04:27) Chest Pa/Lat (2 View) (07/19/19 04:27) Albuterol/Ipra Inhalation Soln (Duoneb I (07/19/19 04:30) Ed Iv/Invasive Line Start (07/19/19 04:27) Ns (Ivpb) (Sodium Chloride 0.9%) (07/19/19 04:27) Svn Small Volume Nebulizer (07/19/19 04:27) Ns (Ivpb) (Sodium Chloride 0.9%) (07/19/19 04:27) Albuterol/Ipra Inhalation Soln (Duoneb I (07/19/19 04:28) Ekg Tracing (07/19/19 04:31) Continuous Ekg Monitoring (07/19/19 04:31) Troponin I (07/19/19 04:31) Medications Given in ED Current Medications Medications Dose Ordered Sig/Adina Route Start Time Stop Time Status Last Admin Dose Admin Albuterol/ Ipratropium 3 ml ONCE ONCE INH 07/19/19 04:30 07/19/19 04:31 DC 07/19/19 04:32 3 ML Sodium Chloride 250 ml @ 0 mls/hr Q0M ONCE IV 07/19/19 04:27 07/19/19 04:29 DC 07/19/19 04:32 0 MLS/HR Vital Signs/I&O 07/19/19 04:10 Temp 35.9 Pulse 95 Resp 18 B/P (MAP) 183/101 (128) Pulse Ox 95 O2 Delivery Room Air Capillary Refill : Progress Note : Time: 04:34 Progress Note We'll do a DuoNeb and a small aliquot saline. Check some labs, EKG troponin and CRP. Bronchitis/upper respiratory tract infection with a cough versus pneumonia. His elevated blood pressure we'll just watch while he is here. I suspect it would be related to his illness. He does not meet septic criteria. He is afebrile and while he has coughed several times since been here it has not been productive. ECG Initial ECG Impression Date: Jul 19, 2019 Initial ECG Impression Time: 04:41 Initial ECG Rate: 75 Initial ECG Rhythm: Normal Sinus Initial ECG Intervals: Normal Initial ECG Impression: Normal Comment Normal sinus rhythm without any ST elevation or depression acutely. Diagnostic Imaging Diagonstic Imaging: Xray Plain Films/CT/US/NM/MRI: chest (2v) Comments No acute cardiopulmonary process noted. Pending radiology over read. Reviewed: Reviewed by Me Departure Impression Primary Impression: Bronchitis Additional Impression: Hypertension Qualified Codes: I10 - Essential (primary) hypertension Disposition: 01 HOME, SELF-CARE Condition: Stable Departure-Patient Inst. Decision time for Depature: 05:57 Referrals: ABIOLA TRINH MD (PCP/Family) Primary Care Physician Patient Instructions: Acute Bronchitis, Adult (DC) Add. Discharge Instructions: Drink plenty fluids. Vapor rubs, humidifiers and [id number] decongestants can be helpful. 2 puffs through the spacer with the albuterol inhaler every 4 hours as needed for coughing or wheezing. Follow-up with primary care if not seeing improvement in 7-10 days. Plan follow-up with primary care to discuss whether pulmonary function testing would be indicated over the next month or 2. Scripts Inhaler, Assist Devices (E-Z Spacer) 1 Each Spacer EACH MC for Cough, #1 0 Refills Prov: TREVOR QUIROS 07/19/19 Albuterol Sulfate (PROAIR HFA) 1 Puff Puff 2 PUFF IH Q4H PRN for WHEEZING, #1 EA 0 Refills 1 PUFF = 90 MCG Prov: TREVOR QUIROS 07/19/19 TREVOR QUIROS Jul 19, 2019 04:31 POS
[2019-07-19 05:19] LABS: BASOPHILS # (AUTO) 0.1 10^3/uL (0.0-0.1); BASOPHILS % (AUTO) 1 % (0-10); EOSINOPHILS # (AUTO) 0.4 10^3/uL (0.0-0.3); EOSINOPHILS % (AUTO) 7 % (0-10); HEMATOCRIT 44 % (40-54); LYMPHOCYTES # (AUTO) 2.5 X 10^3 (1.0-4.0); LYMPHOCYTES % (AUTO) 38 % (12-44); MEAN CORPUSCULAR HEMOGLOBIN 32 PG (25-34); MEAN CORPUSCULAR HGB CONC 34 G/DL (32-36); MEAN CORPUSCULAR VOLUME 95 FL (80-99); MEAN PLATELET VOLUME 9.8 FL (7.4-10.4); MONOCYTES # (AUTO) 0.6 X 10^3 (0.0-1.0); MONOCYTES % (AUTO) 9 % (0-12); NEUTROPHILS % (AUTO) 46 % (42-75); PLATELET COUNT 230 10^3/uL (130-400); RED CELL DISTRIBUTION WIDTH 13.1 % (10.0-14.5); WHITE BLOOD COUNT 6.5 10^3/uL (4.3-11.0)
[2019-07-19] MEDS ORDERED: INHA1INH59 MC (05:21)
[2019-07-19] MEDS ORDERED: RT-ALBUINH IH (05:21)
[2019-07-19 05:42] LABS: ALANINE AMINOTRANSFERASE 21 U/L (0-55); ALBUMIN 4.2 GM/DL (3.2-4.5); ALKALINE PHOSPHATASE 63 U/L (40-136); BILIRUBIN,TOTAL 0.3 MG/DL (0.1-1.0); BUN/CREATININE RATIO 13; CALCIUM 10.5 MG/DL (8.5-10.1); CARBON DIOXIDE 19 MMOL/L (21-32); CHLORIDE 110 MMOL/L (98-107); CREATININE SERUM 1.14 MG/DL (0.60-1.30); GFR ESTIMATED > 60; GLUCOSE 118 MG/DL (70-105); POTASSIUM 4.3 MMOL/L (3.6-5.0); SODIUM 140 MMOL/L (135-145); TOTAL PROTEIN 7.4 GM/DL (6.4-8.2)
[2019-07-19 06:45] VITALS: BP 143/69
--- NOTE | 2019-07-19 07:11 | Diagnostic Imaging Report ---
INDICATION: Hypertension with lightheadedness and dizziness PA and lateral views of the chest are obtained with comparison made to study of 11/06/2018. Overall heart size and pulmonary vascularity are within normal limits. There is slight left basilar atelectasis or scarring. No consolidation or significant pleural fluid is seen. There is mild diffuse thoracic spondylosis. IMPRESSION: Left basilar atelectasis or scarring without evidence of acute abnormality. Dictated by: Dictated on workstation # [id number]
== END 2019-07-19 06:45 | disposition home or self-care (01) ==
LOC: EDUNIT# 04:09 → ER 04:12
DX: J40 Bronchitis, not specified as acute or chronic (principal); I10 Essential (primary) hypertension; E11.9 Type 2 diabetes mellitus without complications; E78.00 Pure hypercholesterolemia, unspecified; F17.210 Nicotine dependence, cigarettes, uncomplicated; Z79.84 Long term (current) use of oral hypoglycemic drugs; Z90.89 Acquired absence of other organs; Z90.49 Acquired absence of other specified parts of digestive tract
CPT/HCPCS: 36415; 71046; 80053; 84484; 85025; 86141; 93005

== ENCOUNTER → 2020-04-23 | Outpatient (CLI) | payer MEDICARE ==
[~2020-04-23] VITALS: Ht 177 cm; Wt 95.4 kg
[~2020-04-23] MED LIST changes: +INHA1INH59 MC; +OMEP40CA27 PO; -OMEP40CA36 PO; +RT-ALBUINH IH
== END | disposition home or self-care (01) ==
LOC: PREOP 05:49
PROVIDERS: ATTEND Surgery
DX: Z01.818 Encounter for other preprocedural examination (principal)

== ENCOUNTER 2020-04-30 09:46 | Day surgery (SDC) | payer MEDICARE ==
[2020-04-30] VITALS (11 sets, daily range): BP systolic 95–143; BP diastolic 59–82
[~2020-04-30] VITALS: Ht 177 cm; Wt 95.4 kg
[2020-04-30] MEDS ORDERED: NS IV 500 ML 500 ML IV PRN (09:55)
[2020-04-30] MEDS ORDERED: NS IV 500 ML 500 ML ONE (09:56)
[2020-04-30] MEDS ORDERED: fentaNYL INJECTION 100 MCG/2 ML AMP IVP ONE (10:00)
[2020-04-30] MEDS ORDERED: LIDOCAINE JELLY 2% 6 ML SYRINGE MM PRN (10:00)
--- OUTSIDE RECORDS SUMMARY | 2020-04-30 10:03 | XMS REPORT | Continuity of Care Document ---
Author Organization Unknown Address Unknown Phone Unavailable Allergies Active Description Code Type Severity Reaction Onset Reported/Identified Relationship to Patient Clinical Status Yes No Known Drug Allergies [id number] Drug Allergy Unknown N/A 04/23/2020 Medications There is no data. Problems Date [...] TYPE 2 DIABETES MELLITUS WITHOUT COMPLIC 05/19/2016 MARGARET ARROYO MD Ot F17.210 NICOTINE DEPENDENCE, CIGARETTES, UNCOMPL 05/19/2016 DINA CARR, MARGARET Vergara Ot K20.9 ESOPHAGITIS, UNSPECIFIED 05/19/2016 DINA CARR, MARGARET Vergara Ot T18.128A FOOD IN ESOPHAGUS CAUSING OTHER INJURY, 05/19/2016 MARGARET ARROYO MD Ot Y92.[address] IN [facility] NON-[facility]IT[facility] (PRIVATE 05/20/2016 GELLENDER DO, JOSEFINA [...] INJURY, 08/03/2016 MARGARET ARROYO MD Ot Y92.[address] IN [facility] NON-[facility] (PRIVATE 08/03/2016 CIROAUBREY FERREIRA, JOSEFINA Ramirez Ot R06.02 SHORTNESS OF BREATH 08/03/2016 JOSEFINA PRITCHARD DO Ot R06.2 WHEEZING 08/07/2016 GWYN TIJERINA DO [...] DIABETES MELLITUS WITHOUT COMPLIC 02/17/2017 MARGARET ARROYO MD Ot F17.210 NICOTINE DEPENDENCE, CIGARETTES, UNCOMPL 02/17/2017 MARGARET ARROYO MD Ot K20.9 ESOPHAGITIS, UNSPECIFIED 02/17/2017 MARGARET ARROYO MD Ot T18.128A FOOD IN ESOPHAGUS CAUSING OTHER INJURY, 02/17/2017 MARGARET ARROYO MD Ot Y92.[address] [facility] [address] IN [facility] (PRIVATE 02/17/2017 JOSEFINA PRITCHARD DO Ot R06.02 SHORTNESS OF BREATH 02/17/2017 JOSEFINA PRITCHARD DO Ot R06.2 WHEEZING 02/17/2017 MARGARET ARROYO MD [...] INJURY, 02/21/2017 MARGARET ARROYO MD Ot Y92.[address] [facility] [address] IN [facility] NON-[facility] (PRIVATE 02/21/2017 JOSEFINA PRITCHARD DO Ot R06.02 SHORTNESS OF BREATH 02/21/2017 JOSEFINA PRITCHARD DO Ot R06.2 WHEEZING 02/21/2017 MARGARET ARROYO MD, Ot E11.9 TYPE 2 DIABETES MELLITUS WITHOUT COMPLIC 02/21/2017 MARGARET ARROYO MD, Ot E78.5 HYPERLIPIDEMIA, UNSPECIFIED 02/21/2017 MARGARET ARROYO MD Ot K57.30 DVRTCLOS OF LG INT W/O PERFORATION OR AB 02/21/2017 MARGARET ARROYO MD Ot Z12.11 ENCOUNTER FOR SCREENING FOR MALIGNANT NE 02/21/2017 MARGARET ARROYO MD Ot Z79.899 OTHER CAMP PROGRAM DIRECTOR (CURRENT) DRUG THERAPY 02/21/2017 MARGARET ARROYO MD Ot Z80.0 FAMILY HISTORY OF MALIGNANT NEOPLASM OF 02/21/2017 MARGARET ARROYO MD Ot Z86.010 PERSONAL HISTORY OF COLONIC POLYPS 02/27/2017 MARGARET ARROYO MD, Ot E11.9 TYPE 2 DIABETES MELLITUS WITHOUT COMPLIC 02/27/2017 MARGARET ARROYO MD, Ot E78.5 HYPERLIPIDEMIA, UNSPECIFIED 02/27/2017 MARGARET ARROYO MD, Ot K57.30 DVRTCLOS OF LG INT W/O PERFORATION OR AB 02/27/2017 MARGARET ARROYO MD Ot Z12.11 ENCOUNTER FOR SCREENING FOR MALIGNANT NE 02/27/2017 MARGARET ARROYO MD Ot Z79.899 OTHER CAMP PROGRAM DIRECTOR (CURRENT) DRUG THERAPY 02/27/2017 MARGARET ARROYO MD Ot Z80.0 FAMILY HISTORY OF MALIGNANT NEOPLASM OF 02/27/2017 MARGARET ARROYO MD Ot Z86.010 PERSONAL HISTORY OF COLONIC POLYPS 11/06/2018 MARGARET ARROYO MD, Ot E11.9 TYPE 2 DIABETES MELLITUS WITHOUT COMPLIC 11/06/2018 MARGARET ARROYO MD, Ot F17.210 NICOTINE DEPENDENCE, CIGARETTES, UNCOMPL 11/06/2018 MARGARET ARROYO MD Ot K20.9 ESOPHAGITIS, UNSPECIFIED 11/06/2018 MARGARET ARROYO MD, Ot T18.128A FOOD IN ESOPHAGUS CAUSING OTHER INJURY, 11/06/2018 DINA CARR, MARGARET Vergara Ot Y92.[address] [facility] [address] IN [facility] NON-[facility] (PRIVATE 11/06/2018 JOSEFINA PRITCHARD DO Ot R06.02 SHORTNESS OF BREATH 11/06/2018 JOSEFINA PRITCHARD DO Ot R06.2 WHEEZING 11/06/2018 TREVOR QUIROS MD Ot E11. 9 TYPE 2 DIABETES MELLITUS WITHOUT COMPLIC 11/06/2018 TREVOR QUIROS MD Ot E78. 00 PURE HYPERCHOLESTEROLEMIA, UNSPECIFIED 11/06/2018 TREVOR QUIROS MD Ot J11. 1 FLU DUE TO UNIDENTIFIED INFLUENZA VIRUS 11/06/2018 TREVOR QUIROS MD Ot R50. 9 FEVER, UNSPECIFIED 11/06/2018 TREVOR QUIROS MD Ot Z79. 84 CAMP PROGRAM DIRECTOR (CURRENT) USE OF ORAL HYPOGLYC 11/06/2018 TREVOR QUIROS MD Ot Z86.010 PERSONAL HISTORY OF COLONIC POLYPS 11/06/2018 TREVOR QUIROS MD Ot Z87. 01 PERSONAL HISTORY OF PNEUMONIA (RECURRENT 11/06/2018 TREVOR QUIROS MD Ot Z87.891 PERSONAL HISTORY OF NICOTINE DEPENDENCE 11/06/2018 TREVOR QUIROS MD Ot Z90. 49 ACQUIRED ABSENCE OF OTHER SPECIFIED PART 11/06/2018 TREVOR QUIROS MD Ot Z90. 89 ACQUIRED ABSENCE OF OTHER ORGANS 11/08/2018 TREVOR QUIROS MD Ot E11. 9 TYPE 2 DIABETES MELLITUS WITHOUT COMPLIC 11/08/2018 TREVOR QUIROS MD Ot E78. 00 PURE HYPERCHOLESTEROLEMIA, UNSPECIFIED 11/08/2018 TREVOR QUIROS MD Ot J11. 1 FLU DUE TO UNIDENTIFIED INFLUENZA VIRUS 11/08/2018 TREVOR QUIROS MD Ot R50. 9 FEVER, UNSPECIFIED 11/08/2018 TREVOR QUIROS MD Ot Z79. 84 DETENTION (CURRENT) USE OF ORAL HYPOGLYC 11/08/2018 TREVOR QUIROS MD Ot Z86.010 PERSONAL HISTORY OF COLONIC POLYPS 11/08/2018 TREVOR QUIROS MD Ot Z87. 01 PERSONAL HISTORY OF PNEUMONIA (RECURRENT 11/08/2018 TREVOR QUIROS MD Ot Z87.891 PERSONAL HISTORY OF NICOTINE DEPENDENCE 11/08/2018 TREVOR QUIROS MD Ot Z90. 49 ACQUIRED ABSENCE OF OTHER SPECIFIED PART 11/08/2018 TREVOR QUIROS MD Ot Z90. 89 ACQUIRED ABSENCE OF OTHER ORGANS 06/25/2019 ARIANA DHILLON APRN Ot B35.3 TINEA PEDIS 06/25/2019 ARIANA DHILLON AREA SAFETY MANAGER Ot E11.52 TYPE 2 DIABETES W DIABETIC PERIPHERAL AN 06/25/2019 ARIANA DHILLON AREA SAFETY MANAGER Ot E11.628 TYPE 2 DIABETES MELLITUS WITH OTHER SKIN 06/25/2019 ARIANA DHILLON AREA SAFETY MANAGER Ot L97.521 NON-PRS CHRONIC ULCER OTH PRT L FOOT OCAMPO 06/25/2019 ARIANA DHILLON APRN Ot Z72.0 TOBACCO USE 07/09/2019 ARIANA DHILLON APRN Ot B35.3 TINEA PEDIS 07/09/2019 ARIANA DHILLON AREA SAFETY MANAGER Ot E11.622 TYPE 2 DIABETES MELLITUS WITH OTHER SKIN 07/09/2019 ARIANA DHILLON AREA SAFETY MANAGER Ot L97.521 NON-PRS CHRONIC ULCER OTH PRT L FOOT OCAMPO 07/09/2019 ARIANA DHILLON AREA SAFETY MANAGER Ot Z72.0 TOBACCO USE 07/19/2019 DINA CARR, MARGARET Vergara Ot E11.9 TYPE 2 DIABETES MELLITUS WITHOUT COMPLIC 07/19/2019 DINA CARR, MARGARET Vergara Ot F17.210 NICOTINE DEPENDENCE, CIGARETTES, UNCOMPL 07/19/2019 DINA CARR, MARGARET Vergara Ot K20.9 ESOPHAGITIS, UNSPECIFIED 07/19/2019 DINA CARR, MARGARET Vergara Ot T18.128A FOOD IN ESOPHAGUS CAUSING OTHER INJURY, 07/19/2019 DINA CARR, MARGARET Vergara Ot Y92.[address] [facility] [address] IN [facility] NON-INST[facility] (PRIVATE 07/19/2019 JOSEFINA PRITCHARD DO Ot R06.02 SHORTNESS OF BREATH 07/19/2019 JOSEFINA PRITCHARD DO A Ot R06.2 WHEEZING 07/19/2019 ARIANA DHILLON AREA SAFETY MANAGER Ot B35.3 TINEA PEDIS 07/19/2019 ARIANA DHILLON AREA SAFETY MANAGER Ot E11.628 TYPE 2 DIABETES MELLITUS WITH OTHER SKIN 07/19/2019 ARIANA DHILLON AREA SAFETY MANAGER Ot L97.521 NON-PRS CHRONIC ULCER OTH PRT L FOOT OCAMPO 07/19/2019 ARIANA DHILLON AREA SAFETY MANAGER Ot Z72.0 TOBACCO USE 07/19/2019 TENISHA DHILLONN R AREA SAFETY MANAGER Ot B35.3 TINEA PEDIS 07/19/2019 JACQUIETENISHAN R AREA SAFETY MANAGER Ot E11.52 TYPE 2 DIABETES W DIABETIC PERIPHERAL AN 07/19/2019 TENISHA DHILLONN Vanessa AREA SAFETY MANAGER Ot E11.628 TYPE 2 DIABETES MELLITUS WITH OTHER SKIN 07/19/2019 JACQUIETENISHAN R AREA SAFETY MANAGER Ot L97.521 NON-PRS CHRONIC ULCER OTH PRT L FOOT OCAMPO 07/19/2019 JACQUIE ARIANA R AREA SAFETY MANAGER Ot Z72.0 TOBACCO USE 07/19/2019 JACQUIE ARIANA R AREA SAFETY MANAGER Ot B35.3 TINEA PEDIS 07/19/2019 JACQUIETENISHAN R AREA SAFETY MANAGER Ot E11.622 TYPE 2 DIABETES MELLITUS WITH OTHER SKIN 07/19/2019 JACQUIETENISHAN R AREA SAFETY MANAGER Ot L97.521 NON-PRS CHRONIC ULCER OTH PRT L FOOT OCAMPO 07/19/2019 TENISHA DHILLONN R AREA SAFETY MANAGER Ot Z72.0 TOBACCO USE 07/19/2019 TENISHA DHILLONN R AREA SAFETY MANAGER Ot B35.3 TINEA PEDIS 07/19/2019 TENISHA DHILLONN R AREA SAFETY MANAGER Ot E11.622 TYPE 2 DIABETES MELLITUS WITH OTHER SKIN 07/19/2019 TENISHA DHILLONN R AREA SAFETY MANAGER Ot L97.521 NON-PRS CHRONIC ULCER OTH PRT L FOOT OCAMPO 07/19/2019 JACQUIE ARIANA R AREA SAFETY MANAGER Ot Z72.0 TOBACCO USE 07/19/2019 TREVOR QUIROS MD Ot E11. 9 TYPE 2 DIABETES MELLITUS WITHOUT COMPLIC 07/19/2019 TREVOR QUIROS MD Ot E78. 00 PURE HYPERCHOLESTEROLEMIA, UNSPECIFIED 07/19/2019 TREVOR QUIROS MD Ot F17.210 NICOTINE DEPENDENCE, CIGARETTES, UNCOMPL 07/19/2019 TREVOR QUIROS MD Ot I10 ESSENTIAL (PRIMARY) HYPERTENSION 07/19/2019 TREVOR QIUROS MD, Ot J40 BRONCHITIS, NOT SPECIFIED ACUTE OR CH 07/19/2019 TREVOR QUIROS MD Ot Z79. 84 DETENTION (CURRENT) USE OF ORAL HYPOGLYC 07/19/2019 TREVOR QUIROS MD Ot Z90. 49 ACQUIRED ABSENCE OF OTHER SPECIFIED PART 07/19/2019 TREVOR QUIROS MD Ot Z90. 89 ACQUIRED ABSENCE OF OTHER ORGANS 07/23/2019 TREVOR QUIROS MD Ot E11. 9 TYPE 2 DIABETES MELLITUS WITHOUT COMPLIC 07/23/2019 TREVOR QUIROS MD Ot E78. 00 PURE HYPERCHOLESTEROLEMIA, UNSPECIFIED 07/23/2019 TREVOR QUIROS MD Ot F17.210 NICOTINE DEPENDENCE, CIGARETTES, UNCOMPL 07/23/2019 TREVOR QUIROS MD Ot I10 ESSENTIAL (PRIMARY) HYPERTENSION 07/23/2019 TREVOR QUIROS MD Ot J40 BRONCHITIS, NOT SPECIFIED ACUTE OR CH 07/23/2019 TREVOR QUIROS MD Ot Z79. 84 CAMP PROGRAM DIRECTOR (CURRENT) USE OF ORAL HYPOGLYC 07/23/2019 TREVOR QUIROS MD Ot Z90. 49 ACQUIRED ABSENCE OF OTHER SPECIFIED PART 07/23/2019 TREVOR QUIROS MD Ot Z90. 89 ACQUIRED ABSENCE OF OTHER ORGANS 07/25/2019 TREVOR QUIROS MD Ot E11. 9 TYPE 2 DIABETES MELLITUS WITHOUT COMPLIC 07/25/2019 TREVOR QUIROS MD Ot E78. 00 PURE HYPERCHOLESTEROLEMIA, UNSPECIFIED 07/25/2019 TREVOR QUIROS MD Ot F17.210 NICOTINE DEPENDENCE, CIGARETTES, UNCOMPL 07/25/2019 TREVOR QUIROS MD Ot I10 ESSENTIAL (PRIMARY) HYPERTENSION 07/25/2019 TREVOR QUIROS MD Ot J40 BRONCHITIS, NOT SPECIFIED ACUTE OR CH 07/25/2019 TREVOR QUIROS MD Ot Z79. 84 DETENTION (CURRENT) USE OF ORAL HYPOGLYC 07/25/2019 TREVOR QUIROS MD Ot Z90. 49 ACQUIRED ABSENCE OF OTHER SPECIFIED PART 07/25/2019 TREVOR QUIROS MD Ot Z90. 89 ACQUIRED ABSENCE OF OTHER ORGANS 04/22/2020 MARGARET ARROYO MD Ot E11.9 TYPE 2 DIABETES MELLITUS WITHOUT COMPLIC 04/22/2020 MARGARET ARROYO MD Ot F17.210 NICOTINE DEPENDENCE, CIGARETTES, UNCOMPL 04/22/2020 MARGARET ARROYO MD Ot K20.9 ESOPHAGITIS, UNSPECIFIED 04/22/2020 MARGARET ARROYO MD Ot T18.128A FOOD IN ESOPHAGUS CAUSING OTHER INJURY, 04/22/2020 MARGARET ARROYO MD Ot Y92.[address] IN [facility] NON-INSTITUT (PRIVATE 04/22/2020 JOSEFINA PRITCHARD DO Ot R06.02 SHORTNESS OF BREATH 04/22/2020 JOSEFINA PRITCHARD DO Ot R06.2 WHEEZING 04/22/2020 ARIANA DHILLON R AREA SAFETY MANAGER Ot B35.3 TINEA PEDIS 04/22/2020 ARIANA DHILLON R AREA SAFETY MANAGER Ot E11.628 TYPE 2 DIABETES MELLITUS WITH OTHER SKIN 04/22/2020 ARIANA DHILLON R AREA SAFETY MANAGER Ot L97.521 NON-PRS CHRONIC ULCER OTH PRT L FOOT OCAMPO 04/22/2020 JACQUIE ARIANA R AREA SAFETY MANAGER Ot Z72.0 TOBACCO USE 04/22/2020 JACQUIE ARIANA R AREA SAFETY MANAGER Ot B35.3 TINEA PEDIS 04/22/2020 JACQUIE ARIANA R AREA SAFETY MANAGER Ot E11.52 TYPE 2 DIABETES W DIABETIC PERIPHERAL AN 04/22/2020 ARIANA DHILLON R AREA SAFETY MANAGER Ot E11.628 TYPE 2 DIABETES MELLITUS WITH OTHER SKIN 04/22/2020 JACQUIE ARIANA R AREA SAFETY MANAGER Ot L97.521 NON-PRS CHRONIC ULCER OTH PRT L FOOT OCAMPO 04/22/2020 JACQUIE ARIANA R AREA SAFETY MANAGER Ot Z72.0 TOBACCO USE 04/22/2020 JACQUIE ARIANA R AREA SAFETY MANAGER Ot B35.3 TINEA PEDIS 04/22/2020 JACQUIE ARIANA R AREA SAFETY MANAGER Ot E11.622 TYPE 2 DIABETES MELLITUS WITH OTHER SKIN 04/22/2020 JACQUIE ARIANA R AREA SAFETY MANAGER Ot L97.521 NON-PRS CHRONIC ULCER OTH PRT L FOOT OCAMPO 04/22/2020 JACQUIE ARIANA R AREA SAFETY MANAGER Ot Z72.0 TOBACCO USE 04/22/2020 ARIANA DHILLON R AREA SAFETY MANAGER Ot B35.3 TINEA PEDIS 04/22/2020 ARIANA DHILLON R AREA SAFETY MANAGER Ot E11.622 TYPE 2 DIABETES MELLITUS WITH OTHER SKIN 04/22/2020 JACQUIE ARIANA R AREA SAFETY MANAGER Ot L97.521 NON-PRS CHRONIC ULCER OTH PRT L FOOT OCAMPO 04/22/2020 ARIANA DHILLON R AREA SAFETY MANAGER Ot Z72.0 TOBACCO USE 04/24/2020 DUC BLANC MD Ot Z01.81 8 ENCOUNTER FOR OTHER PREPROCEDURAL EXAMIN Procedures There is no data. Results Test Result Range Complete blood count (CBC) with automate d white blood cell (WBC) differential - 07/28/16 07:21 Blood leukocytes automated count (number/volume) 9.1 10*3/uL 4.3-11.0 Blood erythrocytes automated count (number/volume) 4.45 10*6/uL 4.35-5.85 Venous blood hemoglobin measurement (mass/volume) 14.6 g/dL 13.3-17.7 Blood hematocrit (volume fraction) 42 % 40-54 Automated erythrocyte mean corpuscular volume 94 [ foz_us] 80-99 Automated erythrocyte mean corpuscular h emoglobin (mass per erythrocyte) 33 pg 25-34 Automated erythrocyte mean corpuscular h emoglobin concentration measurement (mass/volume) 35 g/dL 32-36 Automated erythrocyte distribution width ratio 12. 6 % 10.0- 14.5 Automated blood platelet count (count/volume) 229 10*3/uL [...] 10*3 1.0-4.0 Blood monocytes automated count (number/volume) 0. 6 10*3 0.0-1.0 Automated eosinophil count 0.4 10*3/uL 0 .0-0.3 Automated blood basophil count (count/volume) 0.1 10*3/uL 0.0-0.1 Capillary blood glucose measurement by g lucometer (mass/volume) - 02/21/17 09:17 Capillary blood glucose measurement by glucometer (mas s/volume) 116 mg/dL 70-110 Complete blood count (CBC) with automate d white blood cell (WBC) differential - 11/06/18 07:15 Blood leukocytes automated count (number/volume) 5.8 10*3/uL 4.3-11.0 Blood erythrocytes automated count (number/volume) 4.71 10*6/uL 4.35-5.85 Venous blood hemoglobin measurement (mass/volume) 15.2 g/dL 13.3-17.7 Blood hematocrit (volume fraction) 45 % 40-54 Automated erythrocyte mean corpuscular volume 95 [ foz_us] 80-99 Automated erythrocyte mean corpuscular h emoglobin (mass per erythrocyte) 32 pg 25-34 Automated erythrocyte mean corpuscular h emoglobin concentration measurement (mass/volume) 34 g/dL 32-36 Automated erythrocyte distribution width ratio 13. 3 % 10.0- 14.5 Automated blood platelet count (count/volume) 162 10*3/uL 130-400 Automated blood platelet mean volume measurement 9.8 [foz_us] 7.4-10.4 Automated blood neutrophils/100 leukocytes 68 % 42-75 Automated blood lymphocytes/100 leukocytes 21 % 12-44 Blood monocytes/100 leukocytes 9 % 0-12 Automated blood eosinophils/100 leukocytes 1 % 0-10 Automated blood basophils/100 leukocytes 1 % 0-10 Blood neutrophils automated count (number/volume) 3.9 10*3 1.8-7.8 Blood lymphocytes automated count (number/volume) 1.2 10*3 1.0-4.0 Blood monocytes automated count (number/volume) 0. 5 10*3 0.0-1.0 Automated eosinophil count 0.1 10*3/uL 0 .0-0.3 Automated blood basophil count (count/volume) 0.0 10*3/uL 0.0-0.1 PT panel in platelet poor plasma by coag ulation assay - 11/06/18 07:15 Prothrombin time (PT) in platelet poor plasma by coagu lation assay 13.4 s 12.2-14.7 INR in platelet poor plasma or blood by coagulation as say 1.0 0.8-1.4 Activated partial thromboplastin time (a PTT) in platelet poor plasma bycoagulation assay - 11/06/18 07:15 Activated partial thromboplastin time (a PTT) in platelet poor plasma bycoagulation assay 43 s 24-35 Influenza virus A and B antigen detectio n - 11/06/18 07:15 CALL POSITIVES (F1 HELP) [facility] FLU RESULT POSITIVE FOR INFLUENZA A ANT IGEN, NEG FOR B ANTIGEN, BY [facility] Blood lactic acid measurement (moles/vol ume) - 11/06/18 07:15 Blood lactic acid measurement (moles/volume) 0.90 mmol/L 0.50-2.00 Comprehensive metabolic panel - 11/06/18 07:15 Serum or plasma sodium measurement (moles/volume) 135 mmol/L 135-145 Serum or plasma potassium measurement (moles/volume) 4.4 mmol/L 3.6-5.0 Serum or plasma chloride measurement (moles/volume) 107 mmol/L 98-107 Carbon dioxide 21 mmol/L 21-32 Serum or plasma anion gap determination (moles/volume) 7 mmol/L 5-14 Serum or plasma urea nitrogen measurement (mass/volume ) 19 mg/dL 7-18 Serum or plasma creatinine measurement (mass/volume) 1.29 mg/dL 0.60-1.30 Serum or plasma urea nitrogen/creatinine mass ratio 15 NRG Serum or plasma creatinine measurement w ith calculation of estimated glomerular filtration rate 55 NRG Serum or plasma glucose measurement (mass/volume) 136 mg/dL 70-105 Serum or plasma calcium measurement (mass/volume) 10.1 mg/dL 8.5-10.1 Serum or plasma total bilirubin measurement (mass/volu me) 0.3 mg/dL 0.1-1.0 Serum or plasma alkaline phosphatase otto surement (enzymatic activity/volume) 59 U/L 40-136 Serum or plasma aspartate aminotransfera se measurement (enzymatic activity/volume) 25 U/L 5-34 Serum or plasma alanine aminotransferase measurement (enzymatic activity/volume) 22 U/L 0-55 Serum or plasma protein measurement (mass/volume) 7.2 g/dL 6.4-8.2 Serum or plasma albumin measurement (mass/volume) 4.1 g/dL 3.2-4.5 CALCIUM CORRECTED 10.0 mg/dL 8.5-10.1 Magnesium - 11/06/18 07:15 Magnesium 2.1 mg/dL 1.8-2.4 Serum or plasma troponin i.cardiac measu rement (mass/volume) - 11/06/18 07:15 Serum or plasma troponin i.cardiac measurement (mass/v olume) < ng/mL <0.028 Myoglobin, serum - 11/06/18 07:15 Myoglobin, serum 146.3 ng/mL 10.0-92.0 Bacterial blood culture - 11/06/18 07:15 Bacterial blood culture NG NRG Bacterial blood culture - 11/06/18 08:37 Bacterial blood culture NG NRG Complete blood count (CBC) with automate d white blood cell (WBC) differential - 07/19/19 04:25 Blood leukocytes automated count (number/volume) 6.5 10*3/uL 4.3-11.0 Blood erythrocytes automated count (number/volume) 4.63 10*6/uL 4.35-5.85 Venous blood hemoglobin measurement (mass/volume) 15.0 g/dL 13.3-17.7 Blood hematocrit (volume fraction) 44 % 40-54 Automated erythrocyte mean corpuscular volume 95 [ foz_us] 80-99 Automated erythrocyte mean corpuscular h emoglobin (mass per erythrocyte) 32 pg 25-34 Automated erythrocyte mean corpuscular h emoglobin concentration measurement (mass/volume) 34 g/dL 32-36 Automated erythrocyte distribution width ratio 13. 1 % 10.0- 14.5 Automated blood platelet count (count/volume) 230 10*3/uL 130-400 Automated blood platelet mean volume measurement 9.8 [foz_us] 7.4-10.4 Automated blood neutrophils/100 leukocytes 46 % 42-75 Automated blood lymphocytes/100 leukocytes 38 % 12-44 Blood monocytes/100 leukocytes 9 % 0-12 Automated blood eosinophils/100 leukocytes 7 % 0-10 Automated blood basophils/100 leukocytes 1 % 0-10 Blood neutrophils automated count (number/volume) 3.0 10*3 1.8-7.8 Blood lymphocytes automated count (number/volume) 2.5 10*3 1.0-4.0 Blood monocytes automated count (number/volume) 0. 6 10*3 0.0-1.0 Automated eosinophil count 0.4 10*3/uL 0 .0-0.3 Automated blood basophil count (count/volume) 0.1 10*3/uL 0.0-0.1 Comprehensive metabolic panel - 07/19/19 04:25 Serum or plasma sodium measurement (moles/volume) 140 mmol/L 135-145 Serum or plasma potassium measurement (moles/volume) 4.3 mmol/L 3.6-5.0 Serum or plasma chloride measurement (moles/volume) 110 mmol/L 98-107 Carbon dioxide 19 mmol/L 21-32 Serum or plasma anion gap determination (moles/volume) 11 mmol/L 5-14 Serum or plasma urea nitrogen measurement (mass/volume ) 15 mg/dL 7-18 Serum or plasma creatinine measurement (mass/volume) 1.14 mg/dL 0.60-1.30 Serum or plasma urea nitrogen/creatinine mass ratio 13 NRG Serum or plasma creatinine measurement w ith calculation of estimated glomerular filtration rate > NRG Serum or plasma glucose measurement (mass/volume) 118 mg/dL 70-105 Serum or plasma calcium measurement (mass/volume) 10.5 mg/dL 8.5-10.1 Serum or plasma total bilirubin measurement (mass/volu me) 0.3 mg/dL 0.1-1.0 Serum or plasma alkaline phosphatase otto surement (enzymatic activity/volume) 63 U/L 40-136 Serum or plasma aspartate aminotransfera se measurement (enzymatic activity/volume) 16 U/L 5-34 Serum or plasma alanine aminotransferase measurement (enzymatic activity/volume) 21 U/L 0-55 Serum or plasma protein measurement (mass/volume) 7.4 g/dL 6.4-8.2 Serum or plasma albumin measurement (mass/volume) 4.2 g/dL 3.2-4.5 CALCIUM CORRECTED 10.3 mg/dL 8.5-10.1 Serum or plasma troponin i.cardiac measu rement (mass/volume) - 07/19/19 04:25 Serum or plasma troponin i.cardiac measurement (mass/v olume) < ng/mL <0.028 Serum or plasma C reactive protein measu rement (mass/volume) - 07/19/19 04:25 Serum or plasma C reactive protein measurement (mass/v olume) 0.38 mg/dL 0.00-0.50 Encounters ACCT No. Visit Date/Time Discharge Status Pt. Type Provider Facility Loc./Unit Complaint [id number] 04/23/2020 05:49:00 23:59:59 CLS Outpatient DUC BLANC MD [facility] PREOP COLONOSCOPY [id number] 07/19/2019 04:12:00 06:45:00 DIS Emergency TREVOR QUIROS MD [facility] ER HIGH BLOOD PRESSURE [id number] 07/05/2019 10:25:00 23:59:59 CLS Outpatient ARIANA DHILLON APRN [facility] WOUNDCARE [id number] 06/28/2019 10:25:00 23:59:59 CLS Outpatient ARIANA DHILLON AREA SAFETY MANAGER [facility] WOUNDCARE [id number] 06/21/2019 10:24:00 23:59:59 CLS Outpatient ARIANA DHILLON AREA SAFETY MANAGER [facility] WOUNDCARE [id number] 06/12/2019 07:57:00 23:59:59 CLS Outpatient ARIANA DHILLON AREA SAFETY MANAGER [facility] WOUNDCARE [id number] 11/06/2018 06:26:00 09:54:00 DIS Emergency CHULA CARR, TREVOR Bailey [facility] ER FEVER [id number] 02/21/2017 08:51:00 11:50:00 DIS Outpatient MARGARET ARROYO MD [facility] ENDO SCREENING [id number] 02/17/2017 12:39:00 017 12:54:00 DIS Outpatient MARGARET ARROYO MD [facility] PREOP SCREENING COLONOSCOPY [id number] 07/28/2016 06:30:00 10:48:00 DIS Emergency GWYN TIJERINA DO [facility] ER BACK PAIN [id number] 05/19/2016 12:40:00 016 23:59:59 CLS Outpatient JOSEFINA PRITCHARD DO [facility] RAD SOB,WHEEZING [id number] 12/05/2015 19:36:00 016 23:59:59 CLS Outpatient MARGARET ARROYO MD [facility] SDC FOREIGN BODY [id number] 04/30/2020 10:15:00 P EN Preadmit DUC BLANC MD [facility] [place] [facility] ENDO SCREENING/FAMILY HX COLON CA /HX POLYPS
--- NOTE | 2020-04-30 10:50 | Conscious Sedation/ASA ---
Conscious Sedation Pre-Proced Time 10:30 ASA Score 2 For ASA 3 and 4: Consider anesthesia and medical clearance. Also, for patients with a history of failed moderate sedation consider anesthesia. Airway Lungs Heart ASA score ASA 1: a normal healthy patient ASA 2: a patient with a mild systemic disease (mid diabetes, controlled hypertension, obesity ASA 3: a patient with a severe systemic disease that limits activity (angina, COPD, prior Myocardial infarction) ASA 4: a patient with an incapacitating disease that is a constant threat to life (CHF, renal failure) ASA 5: a moribund patient not expected to survive 24 hrs. (ruptured aneurysm) ASA 6: a declared brain- patient whose organs are being harvested. For emergent operations, add the letter E after the classification Mallampati Classification Grade 2 Sedation Plan Analgesia, Amnesia, Plan communicated to team members, Discussed options with patient/fam, Discussed risks with patient/fam The patient is an appropriate candidate to undergo the planned procedure, sedation, and anesthesia. The patient immediately re-assessed prior to indication. DUC BLANC MD Apr 30, 2020 10:50
--- NOTE | 2020-04-30 10:51 | Progress Note-Pre Operative ---
Pre-Operative Progress Note H&P Reviewed The H&P was reviewed, patient examined and no changes noted. Date Seen by Provider: Apr 30, 2020 Time Seen by Provider: 10:30 Date H&P Reviewed: Apr 30, 2020 Time H&P Reviewed: 10:30 Pre-Operative Diagnosis: screening colonoscopy DUC BLANC MD Apr 30, 2020 10:51
--- NOTE | 2020-04-30 10:52 | Discharge Inst-Surgical ---
D/C Lap Instructions-JAYASHREE Follow Up Activity as tolerated High Fiber Diet 25g or more per day Avoid Alcohol, Caffeine, Spicy [place] and Acid foods. Drink 64 fluid oz or more of fluids per day. Symptoms to Report: Fever over 101 degree F, Nausea/Vomiting If any problems/questions: Contact your physician or go to Emergency Room DUC BLANC MD Apr 30, 2020 10:52
[2020-04-30] MEDS ORDERED: morphine INJ 10 MG/ML 1ML (SYR OR VIAL) IVP PRN ×2 (11:00)
[2020-04-30] MEDS ORDERED: ACETAMINOPHEN 325 MG TABLET PO PRN (11:00)
[2020-04-30] MEDS ORDERED: HYDROcodone/APAP 5 MG/325 MG (LORTAB) TAB PO PRN (11:00)
[2020-04-30] MEDS ORDERED: ONDANSETRON 4 MG/2 ML (SDV) Z0FRAN IVP PRN (11:00)
[2020-04-30] MEDS ORDERED: LIDOCAINE JELLY 2% 6 ML SYRINGE ONE (11:05)
[2020-04-30] MEDS ORDERED: fentaNYL INJECTION 100 MCG/2 ML AMP ONE (11:06)
[2020-04-30] MEDS ORDERED: MIDAZOLAM 5 MG/5 ML (VERSED) VIAL ONE ×2 (11:06)
[2020-04-30] MEDS: MIDAZOLAM 5 MG/5 ML (VERSED) VIAL IV PRN ×3 (12:04→12:10)
--- NOTE | 2020-04-30 12:34 | Progress Note-Post Operative ---
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 Procedure & Operative Findings Date of Procedure 04/30/20 Procedure Performed/Findings colonoscopy Anesthesia Type cs Estimated Blood Loss Estimated blood loss (mL): minimal Specimens/Packing Specimens Removed none DUC BLANC MD Apr 30, 2020 12:34
--- NOTE | 2020-04-30 17:20 | OPERATIVE REPORT ---
DATE OF SERVICE: 04/30/2020 ATTENDING PRIMARY CARE PHYSICIAN: Dr. Nabeel Miller. PREOPERATIVE DIAGNOSIS: Screening colonoscopy with family history of colon cancer. POSTOPERATIVE DIAGNOSES: Mild chronic stage II external and internal hemorrhoids. Remainder of the rectum and colon were normal. PROCEDURE: Colonoscopy. SURGEON: Dr. Blanc. ANESTHESIA: Conscious sedation. ESTIMATED BLOOD LOSS: Minimal. FINDINGS: Mild chronic stage II external and internal hemorrhoids. Remainder of the rectum and colon were normal. DISPOSITION: The patient tolerated the procedure well. INDICATIONS: The patient is a 69-year-old male in need of a screening colonoscopy. He states that he had a colonoscopy three years ago, which was normal. He states the one before that, which was approximately six years ago, he had 5 polyps, which were all biopsied and found to be benign. He does have a family history of colon cancer with his father having the disease. He does not report any major issues with diarrhea nor constipation as well as no red blood per rectum nor any dark tarry stools. DESCRIPTION OF PROCEDURE: The patient was brought to the endoscopy suite, laid in the left lateral decubitus position. After adequate IV pain and sedated medications and conscious sedation anesthesia, a digital rectal examination was performed. Chronic stage II external and internal hemorrhoids identified, not actively edematous nor inflamed and no bleeding. Normal sphincter tone was felt and there were no palpable masses. Prostate gland was palpable and appeared normal. The endoscope was then intubated to the anus and rectum gently insufflated. The endoscope was then advanced to the valves of [place] of the rectum with no polyps or any neoplasms identified. Through the sigmoid colon, no diverticulosis identified. The endoscope was then advanced to the remainder of the descending, transverse and ascending colon to the cecum. These segments were normal. There were no polyps or any neoplasms identified throughout the colon or rectum. The endoscope was then slowly withdrawn while taking a second look and suctioning of residual air with no additional findings. The patient tolerated the procedure well. We will recommend continued lifestyle management with high fiber diet with at least 30 grams of fiber daily as well as significant amounts of water to promote soft stools on a daily basis. With his first-degree family history of colon cancer, we will recommend a screening colonoscopy approximately every five years. Job ID: [id number] DocumentID: [id number] Dictated Date: 04/30/2020 12:30:12 Health Sciences Department Chair Date: 04/30/2020 17:19:40 Dictated By: DUC BLANC MD
== END 2020-04-30 13:25 | disposition home or self-care (01) ==
LOC: ENDO 09:46
PROVIDERS: ATTEND Surgery
DX: Z12.11 Encounter for screening for malignant neoplasm of colon (principal); K64.1 Second degree hemorrhoids; I10 Essential (primary) hypertension; E11.9 Type 2 diabetes mellitus without complications; E78.00 Pure hypercholesterolemia, unspecified; Z79.84 Long term (current) use of oral hypoglycemic drugs; Z79.899 Other long term (current) drug therapy; Z86.010 Personal history of colon polyps; Z80.0 Family history of malignant neoplasm of digestive organs

== ENCOUNTER 2020-07-31 13:42 | Day surgery (SDC) | payer MEDICARE ==
[2020-07-31] VITALS (8 sets, daily range): BP systolic 122–157; BP diastolic 62–93
[~2020-07-31] VITALS: Ht 177 cm; Wt 92.5 kg
[2020-07-31 13:54] LABS: BASOPHILS # (AUTO) 0.1 10^3/uL (0.0-0.1); BASOPHILS % (AUTO) 1 % (0-10); EOSINOPHILS # (AUTO) 0.4 10^3/uL (0.0-0.3); EOSINOPHILS % (AUTO) 5 % (0-10); HEMATOCRIT 45 % (40-54); HEMOGLOBIN 15.3 g/dL (13.3-17.7); LYMPHOCYTES # (AUTO) 3.7 10^3/uL (1.0-4.0); LYMPHOCYTES % (AUTO) 42 % (12-44); MEAN CORPUSCULAR HEMOGLOBIN 33 pg (25-34); MEAN CORPUSCULAR HGB CONC 34 g/dL (32-36); MEAN CORPUSCULAR VOLUME 97 fL (80-99); MEAN PLATELET VOLUME 9.4 fL (9.0-12.2); MONOCYTES # (AUTO) 0.5 10^3/uL (0.0-1.0); MONOCYTES % (AUTO) 6 % (0-12); NEUTROPHILS # (AUTO) 4.1 10^3/uL (1.8-7.8); NEUTROPHILS % (AUTO) 46 % (42-75); PLATELET COUNT 245 10^3/uL (130-400); WHITE BLOOD COUNT 8.9 10^3/uL (4.3-11.0)
--- NOTE | 2020-07-31 13:58 | ED Syncope ---
General Stated Complaint: STROKE LIKE SYPMTOMS History of Present Illness Date Seen by Provider: Jul 31, 2020 Time Seen by Provider: 13:40 Initial Comments 70-year-old male reports that approximately 1315 he began to have some numbness in the left side of his face and his legs felt as though he could not stand or walk. He was able to transport himself to a car and a friend brought him to the emergency department. He is concerned about a possible TIA or stroke. He has no previous history of TIAs or strokes. He was able to transfer from wheelchair to bed, stable gait and balance. He has no facial drooping, no difficulty speaking and denies visual changes. He is on atorvastatin and Metformin. He reports a few days ago noticing palpitations in his chest, he has had none today. Timing/Prior Episodes: No Prior History Symptoms Prior to Episode: Lightheadedness, Other (numbness to left side of face and legs felt "rubbery") Precipitating Factors: None Loss of Consciousness: No Loss of Consciousness Current Symptoms: Back to Normal; No Blurred Vision, No Chest Pain, No Diaphoresis, No Dizziness, No Headache, No Lightheadedness, No Loss of Bladder Control, No Loss of Bowel Control, No Motionless, No Nausea, No Pale, No Shallow/Rapid Breathing, No Weak/Absent Pulse, No Weakness Allergies and Home Medications Allergies Coded Allergies: No Known Drug Allergies (Verified , 04/23/20) Home Medications Atorvastatin Calcium 10 Mg Tablet, 10 MG PO HS, (Reported) Metformin HCl 500 Mg Tablet, 500 MG PO DAILY, (Reported) Patient Home Medication List Home Medication List Reviewed: Yes Review of Systems Constitutional: see HPI, weakness (Prior to arrival and lower extremities, bilaterally) EENTM: see HPI, no symptoms reported; No blurred vision, No double vision Respiratory: no symptoms reported, see HPI; No cough Cardiovascular: see HPI, palpitations Gastrointestinal: no symptoms reported, see HPI Genitourinary: no symptoms reported, see HPI Musculoskeletal: see HPI, muscle weakness (Bilateral lower extremities prior to arrival) Skin: no symptoms reported, see HPI All Other Systems Reviewed Negative Unless Noted: Yes Past Ktdwpbv-Cqixei-Jmrjvq Hx Past Med/Social Hx: Reviewed Nursing Past Med/Soc Hx Patient Social History Alcohol Beverage of Choice: Beer Type Used: Cigarettes Former Smoker, Quit: Oct 16, 2018 2nd Hand Smoke Exposure: Yes Recent Hopitalizations: No Immunizations Up To Date Tetanus Booster (TDap): Unknown Date of Pneumonia Vaccine: Jun 26, 2018 Date of Influenza Vaccine: Jun 25, 2019 Seasonal Allergies Seasonal Allergies: No Past Medical History Surgeries: Yes Adenoidectomy, Appendectomy, Eye Surgery, Tonsillectomy Respiratory: No Cardiac: Yes High Cholesterol, Rheumatic Fever Neurological: No Reproductive Disorders: No Sexually Transmitted Disease: No HIV/AIDS: No Genitourinary: Yes Kidney Stones Gastrointestinal: Yes Polyps Musculoskeletal: No Endocrine: Yes Diabetes, Non-Insulin dep HEENT: Yes ([place]) Cataract Loss of Vision: Bilateral Hearing Impairment: Denies Cancer: No Psychosocial: No Integumentary: No Blood Disorders: No Adverse Reaction/Blood Tranf: No (N/A) Family Medical History No Pertinent Family Hx Physical Exam Vital Signs Vital Signs - First Documented 07/31/20 13:42 Temp 36.7 Pulse 99 Resp 29 B/P (MAP) 183/111 (135) Pulse Ox 97 O2 Delivery Room Air Capillary Refill : Height, Weight, BMI Height: 5'10.00" Weight: 210lbs. 0.0oz. 95.626102pk; 30.45 BMI Method:Stated General Appearance: No Apparent Distress, WD/WN HEENT: PERRL/EOMI, TMs Normal, Normal ENT Inspection, Pharynx Normal Neck: Full Range of Motion, Normal Inspection, Non Tender, Supple Cardiovascular: Regular Rate, Rhythm, No Edema, No Murmur, Normal Peripheral Pulses Respiratory: Chest Non Tender, Lungs Clear, Normal Breath Sounds Gastrointestinal: Normal Bowel Sounds, Non Tender, Soft Extremities: Normal Capillary Refill, Normal Inspection, Normal Range of Motion, Non Tender, No Pedal Edema Neurologic/Psychiatric: Alert, Oriented x3, No Motor/Sensory Deficits, Normal Mood/Affect, senior writer II-XII Norm as Tested Coordination/Gait: Normal Finger to Nose, Normal Gait Motor/Sensory: No Motor Deficit, No Sensory Deficit, No Pronator Drift Skin: Normal Color, Warm/Dry NIH=0 Progress/Results/Core Measures Results/Orders Lab Results Laboratory Tests Test 07/31/20 13:47 07/31/20 13:48 07/31/20 14:13 Range/Units Glucometer 114 H 70-110 MG/DL White Blood Count 8.9 4.3-11.0 10^3/uL Red Blood Count 4.64 4.30-5.52 10^6/uL Hemoglobin 15.3 13.3-17.7 g/dL Hematocrit 45 40-54 % Mean Corpuscular Volume 97 80-99 fL Mean Corpuscular Hemoglobin 33 25-34 pg Mean Corpuscular Hemoglobin Concent 34 32-36 g/dL Red Cell Distribution Width 12.4 10.0-14.5 % Platelet Count 245 130-400 10^3/uL Mean Platelet Volume 9.4 9.0-12.2 fL Immature Granulocyte % (Auto) 0 % Neutrophils (%) (Auto) 46 42-75 % Lymphocytes (%) (Auto) 42 12-44 % Monocytes (%) (Auto) 6 0-12 % Eosinophils (%) (Auto) 5 0-10 % Basophils (%) (Auto) 1 0-10 % Neutrophils # (Auto) 4.1 1.8-7.8 10^3/uL Lymphocytes # (Auto) 3.7 1.0-4.0 10^3/uL Monocytes # (Auto) 0.5 0.0-1.0 10^3/uL Eosinophils # (Auto) 0.4 H 0.0-0.3 10^3/uL Basophils # (Auto) 0.1 0.0-0.1 10^3/uL Immature Granulocyte # (Auto) 0.0 0.0-0.1 10^3/uL Prothrombin Time 13.9 12.2-14.7 SEC INR Comment 1.0 0.8-1.4 Activated Partial Thromboplast Time 34 24-35 SEC D-Dimer 1.11 H 0.00-0.49 UG/ML Sodium Level 138 135-145 MMOL/L Potassium Level 4.2 3.6-5.0 MMOL/L Chloride Level 107 98-107 MMOL/L Carbon Dioxide Level 19 L 21-32 MMOL/L Anion Gap 12 5-14 MMOL/L Blood Urea Nitrogen 20 H 7-18 MG/DL Creatinine 1.39 H 0.60-1.30 MG/DL Estimat Glomerular Filtration Rate 50 BUN/Creatinine Ratio 14 Glucose Level 115 H 70-105 MG/DL Calcium Level 10.3 H 8.5-10.1 MG/DL Corrected Calcium 10.1 8.5-10.1 MG/DL Total Bilirubin 0.3 0.1-1.0 MG/DL Aspartate Amino Transf (AST/SGOT) 21 5-34 U/L Alanine Aminotransferase (ALT/SGPT) 24 0-55 U/L Alkaline Phosphatase 63 40-136 U/L Troponin I 0.047 H <0.028 NG/ML Total Protein 7.6 6.4-8.2 GM/DL Albumin 4.3 3.2-4.5 GM/DL Serum Alcohol < 10 <10 MG/DL Urine Color YELLOW Urine Clarity CLEAR Urine pH 6.0 5-9 Urine Specific [place] 1.020 1.016-1.022 Urine Protein NEGATIVE NEGATIVE Urine Glucose (UA) NEGATIVE NEGATIVE Urine Ketones NEGATIVE NEGATIVE Urine Nitrite NEGATIVE NEGATIVE Urine Bilirubin NEGATIVE NEGATIVE Urine Urobilinogen 0.2 < = 1.0 MG/DL Urine Leukocyte Esterase NEGATIVE NEGATIVE Urine RBC (Auto) NEGATIVE NEGATIVE Urine RBC NONE /HPF Urine WBC NONE /HPF Urine Squamous Epithelial Cells RARE /HPF Urine Crystals PRESENT H /LPF Urine Calcium Oxalate Crystals FEW H /LPF Urine Bacteria NEGATIVE /HPF Urine Casts NONE /LPF Urine Mucus NEGATIVE /LPF Urine Culture Indicated NO Urine Opiates Screen NEGATIVE NEGATIVE Urine Oxycodone Screen NEGATIVE NEGATIVE Urine Methadone Screen NEGATIVE NEGATIVE Urine Propoxyphene Screen NEGATIVE NEGATIVE Urine Barbiturates Screen NEGATIVE NEGATIVE Ur Tricyclic Antidepressants Screen NEGATIVE NEGATIVE Urine Phencyclidine Screen NEGATIVE NEGATIVE Urine Amphetamines Screen NEGATIVE NEGATIVE Urine Methamphetamines Screen NEGATIVE NEGATIVE Urine Benzodiazepines Screen NEGATIVE NEGATIVE Urine Cocaine Screen NEGATIVE NEGATIVE Urine Cannabinoids Screen NEGATIVE NEGATIVE My Orders Orders - JER[facility] Ed Iv/Invasive Line Start (07/31/20 14:03) Ns Iv 1000 Ml (Sodium Chloride 0.9%) (07/31/20 14:03) Aspirin Chewable Tablet (Baby Aspirin Ch (07/31/20 14:45) Nicotine Patch (Nicoderm Patch) (07/31/20 14:45) Alcohol (07/31/20 14:45) Drug Screen Stat (Urine) (07/31/20 14:45) Echo W Doppler/Color Flow (07/31/20 15:04) Medications Given in ED Current Medications Medications Dose Ordered Sig/Adina Route Start Time Stop Time Status Last Admin Dose Admin Aspirin 324 mg ONCE ONCE PO 07/31/20 14:45 07/31/20 14:46 DC 07/31/20 14:52 324 MG Vital Signs/I&O 07/31/20 13:42 Temp 36.7 Pulse 99 Resp 29 B/P (MAP) 183/111 (135) Pulse Ox 97 O2 Delivery Room Air Progress Progress Note : Time: 13:40 Progress Note Patient seen and evaluated, initial NIH screening 0. Will obtain CT of the head, labs and EKG. B/P 180/110 will give metoprolol [address] head negative for acute findings. Will await labs. EKG shows no ST elevation. Blood pressure 140/90, metoprolol has not been given yet we will hold at this time and continue to monitor blood pressure. 1430 troponin of 0.047. Will give aspirin 324 mg orally. Patient denies any chest pain or palpitations. [address] Cordero, agreed with the plan to admit patient watch troponin and keep on telemetry. Will obtain echocardiogram. 1530 patient denies chest pain or palpitations. No requests at this time. Will be admitted. Initial ECG Impression Date: Jul 31, 2020 Initial ECG Impression Time: 14:21 Initial ECG Rate: 81 Initial ECG Rhythm: Normal Sinus Initial ECG Intervals: Normal Initial ECG Intervals NM 174, QRSD 91, QT 363, QTc 422 [place] P 56, QRS 9, T 44. Initial ECG Impression: Normal Initial ECG Comparisson: Unchanged Diagnostic Imaging Diagonstic Imaging: CT Comments NAME: CAL THOMAS [facility] REC#: [id number] PT STATUS: REG ER : 1950 PHYSICIAN: TREVOR QUIROS MD ADMIT DATE: 07/31/20/ER Draft Date of Exam:07/31/20 CT HEAD WO-R/O STROKE INDICATION: Left-sided weakness. TECHNIQUE: Multiple contiguous axial images were obtained through the brain without the use of intravenous contrast. Auto Exposure Controls were utilized during the CT exam to meet ALARA standards for radiation dose reduction. There is no previous study for comparison. There are mild diffuse atrophic changes. There were no extra-axial fluid collections. No intracranial hemorrhage. No intracranial mass or mass effect. No midline shift. Ventricles are normal in size and position. There were no discrete focal parenchymal abnormalities in the brain. Calvarial windows appear unremarkable. IMPRESSION: Negative noncontrast brain CT. Dictated on workstation # [id number] Dict: 07/31/20 1414 Trans: 07/31/20 1420 [facility] [id number] Interpreted by: CAL LIMA MD Electronically signed by: Reviewed: Reviewed by Me Diagonstic Imaging: Xray Plain Films/CT/US/NM/MRI: chest Comments NAME: CAL THOMAS [facility] REC#: [id number] PT STATUS: REG ER : 1950 PHYSICIAN: TREVOR QUIROS MD ADMIT DATE: 07/31/20/ER Signed Date of Exam:07/31/20 CHEST 1 VIEW, AP/PA ONLY INDICATION: Stroke. Frontal chest obtained at 02:04 p.m. and is compared to 07/19/2019. Heart and mediastinal silhouette are normal in appearance. The lungs are clear except for some mild linear scarring or atelectasis in the left base which is similar to the prior study. There is no pneumothorax or pleural fluid. IMPRESSION: No acute infiltrate or pneumothorax or pleural fluid. Mild linear scarring or atelectasis in the left base is similar to the prior study. Dictated by: Dictated on workstation # [id number] Dict: 07/31/20 1404 Trans: 07/31/20 1420 [facility] [id number] Interpreted by: CAL LIMA MD Electronically signed by: CAL LIMA MD 07/31/20 1420 Reviewed: Reviewed by Me Departure Impression Primary Impression: NSTEMI (non-ST elevated myocardial infarction) Additional Impressions: Palpitations Dyslipidemia Tobacco dependence Type 2 diabetes mellitus Qualified Codes: E11.9 - Type 2 diabetes mellitus without complications Disposition: ADMITTED INPATIENT Condition: Stable Departure-Patient Inst. Referrals: ABIOLA TRINH MD (PCP/Family) Primary Care Physician Copy Copies To 1: ABIOLA TRINH MD, AMY ARNP Jul 31, 2020 13:57
[2020-07-31] MEDS ORDERED: meTOprolol 5 MG/5 ML (LOPRESSOR) VIAL IV ONE (14:00)
[2020-07-31] MEDS ORDERED: NS IV 1000 ML 1,000 ML IV SCH (14:03)
--- NOTE | 2020-07-31 14:06 | Diagnostic Imaging Report ---
INDICATION: Stroke. Frontal chest obtained at 02:04 p.m. and is compared to 07/19/2019. Heart and mediastinal silhouette are normal in appearance. The lungs are clear except for some mild linear scarring or atelectasis in the left base which is similar to the prior study. There is no pneumothorax or pleural fluid. IMPRESSION: No acute infiltrate or pneumothorax or pleural fluid. Mild linear scarring or atelectasis in the left base is similar to the prior study. Dictated by: Dictated on workstation # [id number]
[2020-07-31 14:07] LABS: FIBRIN DEGRADATION PRODUCTS 1.11 UG/ML (0.00-0.49); PROTHROMBIN TIME PATIENT 13.9 SEC (12.2-14.7)
[2020-07-31 14:12] LABS: ALBUMIN 4.3 GM/DL (3.2-4.5); BILIRUBIN,TOTAL 0.3 MG/DL (0.1-1.0); CALCIUM 10.3 MG/DL (8.5-10.1); CREATININE SERUM 1.39 MG/DL (0.60-1.30); POTASSIUM 4.2 MMOL/L (3.6-5.0); TOTAL PROTEIN 7.6 GM/DL (6.4-8.2)
--- NOTE | 2020-07-31 14:21 | Diagnostic Imaging Report ---
INDICATION: Left-sided weakness. TECHNIQUE: Multiple contiguous axial images were obtained through the brain without the use of intravenous contrast. Auto Exposure Controls were utilized during the CT exam to meet ALARA standards for radiation dose reduction. There is no previous study for comparison. There are mild diffuse atrophic changes. There were no extra-axial fluid collections. No intracranial hemorrhage. No intracranial mass or mass effect. No midline shift. Ventricles are normal in size and position. There were no discrete focal parenchymal abnormalities in the brain. Calvarial windows appear unremarkable. IMPRESSION: Negative noncontrast brain CT. Dictated by: Dictated on workstation # [id number]
[2020-07-31 14:30] LABS: BILIRUBIN,URINE NEGATIVE (NEGATIVE); CLARITY,URINE CLEAR; COLOR,URINE YELLOW; GLUCOSE, URINE (UA) NEGATIVE (NEGATIVE); KETONES,URINE NEGATIVE (NEGATIVE); LEUKOCYTE ESTERASE ,URINE NEGATIVE (NEGATIVE); NITRITE,URINE NEGATIVE (NEGATIVE); PROTEIN,URINE NEGATIVE (NEGATIVE)
[2020-07-31 14:40] LABS: BACTERIA,URINE NEGATIVE /HPF; CALCIUM OXALATE CRYSTALS,UR FEW /LPF; SQUAMOUS EPITHELIAL CELL,UR RARE /HPF
[2020-07-31] MEDS ORDERED: NICOTINE 21 MG (NICODERM) PATCH TD ONE (14:45)
[2020-07-31] MEDS ORDERED: ASPIRIN 81 MG CHEW (CHILDREN'S ASA) PO ONE (14:45)
[2020-07-31 15:01] LABS: AMPHETAMINE SCREEN, URINE NEGATIVE (NEGATIVE); BARBITURATE SCREEN URINE NEGATIVE (NEGATIVE); BENZODIAZEPINES SCREEN URINE NEGATIVE (NEGATIVE); CANNABINOID SCREEN, URINE NEGATIVE (NEGATIVE); COCAINE SCREEN URINE NEGATIVE (NEGATIVE); METHADONE STAT NEGATIVE (NEGATIVE); METHAMPHETAMINE SCREEN URINE S NEGATIVE (NEGATIVE); OPIATE SCREEN URINE NEGATIVE (NEGATIVE); OXYCODONE STAT NEGATIVE (NEGATIVE); PROPOXYPHENE STAT NEGATIVE (NEGATIVE); TRICYCLIC ANTIDEPRESSANTS SCRE NEGATIVE (NEGATIVE)
--- NOTE | 2020-07-31 16:01 | NUR ---
Report received from Jason in the ED. Patient to the floor at 1600.
--- NOTE | 2020-07-31 16:06 | NUR ---
CAL THOMAS admitted to room 427-1, with an admitting diagnosis of Non stemi, on 07/31/20 from ER via wheelchair, accompanied by ER staff.CAL THOMAS introduced to surroundings, call light, bed controls, phone, TV, temperature control, lights, meal times, smoking policy, visitor policy, side rail policy, bathrooms and showers. Patient Rights given to patient in the handbook. CAL THOMAS verbalizes understanding that [facility] is not responsible for the loss or damage to any personal effects or valuables that are kept in the patients posession during their hospitalization. CAL THOMAS verbalizes understanding of Interdisciplinary Patient Education. Patient and/or family were informed about the Rapid Response Team and its purpose.
[2020-07-31] MEDS ORDERED: ACETAMINOPHEN 325 MG TABLET PO PRN (16:15)
[2020-07-31] MEDS ORDERED: ONDANSETRON 4 MG/2 ML (SDV) Z0FRAN IV PRN (16:15)
[2020-07-31] MEDS ORDERED: CATHETER FLUSH 10 ML SYR IV PRN (16:15)
[2020-07-31] MEDS: NS IV 1000 ML 1,000 ML IV SCH (16:58)
[2020-08-01] VITALS (17 sets, daily range): BP systolic 108–142; BP diastolic 66–87
[2020-08-01 05:47] LABS: BASOPHILS # (AUTO) 0.1 10^3/uL (0.0-0.1); BASOPHILS % (AUTO) 1 % (0-10); EOSINOPHILS # (AUTO) 0.4 10^3/uL (0.0-0.3); EOSINOPHILS % (AUTO) 6 % (0-10); HEMATOCRIT 42 % (40-54); LYMPHOCYTES # (AUTO) 2.7 10^3/uL (1.0-4.0); LYMPHOCYTES % (AUTO) 44 % (12-44); MEAN CORPUSCULAR HEMOGLOBIN 33 pg (25-34); MEAN CORPUSCULAR HGB CONC 33 g/dL (32-36); MEAN CORPUSCULAR VOLUME 98 fL (80-99); MEAN PLATELET VOLUME 9.7 fL (9.0-12.2); MONOCYTES # (AUTO) 0.5 10^3/uL (0.0-1.0); MONOCYTES % (AUTO) 8 % (0-12); NEUTROPHILS # (AUTO) 2.5 10^3/uL (1.8-7.8); NEUTROPHILS % (AUTO) 41 % (42-75); PLATELET COUNT 214 10^3/uL (130-400); WHITE BLOOD COUNT 6.1 10^3/uL (4.3-11.0)
[2020-08-01 06:06] LABS: ALBUMIN 3.7 GM/DL (3.2-4.5); BILIRUBIN,TOTAL 0.3 MG/DL (0.1-1.0); CALCIUM 9.5 MG/DL (8.5-10.1); CREATININE SERUM 1.2 MG/DL (0.60-1.30); POTASSIUM 4.4 MMOL/L (3.6-5.0); TOTAL PROTEIN 6.4 GM/DL (6.4-8.2)
[2020-08-01] MEDS ORDERED: NS IV 1000 ML 1,000 ML IV SCH ×2 (07:00→10:06)
[2020-08-01] MEDS: NS IV 1000 ML 1,000 ML IV SCH (07:13)
[2020-08-01] MEDS ORDERED: HEParin (CATH LAB) 2,000 ML IV ONE (08:51)
[2020-08-01] MEDS ORDERED: LIDOCAINE 1% INJ 20 ML 20 ML VIAL ONE ×2 (08:51→13:15)
[2020-08-01] MEDS ORDERED: fentaNYL INJECTION 100 MCG/2 ML AMP ONE (08:53)
[2020-08-01] MEDS ORDERED: MIDAZOLAM 5 MG/5 ML (VERSED) VIAL ONE (08:53)
[2020-08-01] MEDS ORDERED: NICOTINE PATCH REMOVAL TP SCH (08:59)
[2020-08-01] MEDS ORDERED: ASPIRIN 325 MG (5 GR) TABLET PO SCH (09:00)
[2020-08-01] MEDS ORDERED: NICOTINE 21 MG (NICODERM) PATCH TD SCH (09:00)
--- NOTE | 2020-08-01 09:06 | Cardiology History & Physical ---
HPI-Cardiology Cardiology Consultation Date of Consultation 08/01/20 Date of Admission Time Seen by Provider: 09:02 Indication: coronary artery disease HPI 70 years old gentleman with history of diabetes mellitus, hypertension and hyperlipidemia, had a sudden onset of numbness on his legs with weakness with numbness on the left side of his face. Came into the emergency room by the time he arrived he was feeling better. He took aspirin at home. Part of his workup included troponin which was elevated. Patient reported some fluttering sensation for the past couple of days. No chest pain or heaviness. No syncope or near syncopal episodes. No claudications. PMH-Cardiology Immunizations Up To Date Tetanus Booster (DTap): Unknown Date of Pneumonia Vaccine: Jun 30, 2018 Date of Influenza Vaccine: Jun 25, 2019 Seasonal Allergies Seasonal Allergies: No Surgeries Yes Respiratory No Cardiovascular Yes Neurological No Reproductive System Hx Reproductive Disorders: No Sexually Transmitted Disease: No HIV/AIDS: No Genitourinary Yes Kidney Stones Gastrointestinal Yes Polyps Musculoskeletal No Endocrine Yes Diabetes, Non-Insulin dep HEENT Yes (READING GLASSES) Cataract Loss of Vision: Bilateral Hearing Impairment: Denies Cancer No Psychosocial No Integumentary No Blood Transfusions No Adverse Rxn to Transfusion: No (N/A) Other PMHx Discussed below Social History Patient Social History Marrital Status: Employed/Student: retired Alcohol Use: Occasionally Uses Recreational Drug Use: No Smoking: Current some day smoker Recent Foreign Travel: No Contact w/other who traveled: No Recent Infectious Disease Expo: No Family Hx Significant Family History: No Pertinent Family Hx Other Noncontributory ROS-Cardiology Review of Systems General: No Chills, No Night Sweats, No Fatigue, No Malaise, No Appetite HEENT: No Head Aches, No Visual Changes, No Eye Pain, No Ear Pain, No Dysphasia, No Sinus Congestion, No Post Nasal Drip, No Sore Throat Pulmonary: No Dyspnea, No Cough, No Pleuritic Chest Pain Cardiovascular: Palpitations; No: Chest Pain, Orthopnea, Paroxysmal Noc. Dyspnea, Edema, Lt Headedness Gastrointestinal: No: Nausea, Vomiting, Abdominal Pain, Diarrhea, Constipation, Melena, Hematochezia Genitourinary: No Dysuria, No Frequency, No Incontinence, No Hematuria, No Retention Musculoskeletal: No: neck pain, shoulder pain, arm pain, back pain, hand pain, leg pain, foot pain Neurological: Weakness, Numbness; No: Incoordination, Change in speech, Confusion, Seizures Home Medications & Allergies Allergies: Coded Allergies: No Known Drug Allergies (Verified , 04/23/20) Home Medication List Reviewed: Yes Exam-Cardiology Vital Signs Vital Signs Date Time Temp Pulse Resp B/P (MAP) Pulse Ox O2 Delivery O2 Flow Rate FiO2 08/01/20 08:00 Room Air 08/01/20 07:46 72 08/01/20 07:35 36.2 18 137/79 (98) 96 Exam General Appearance: Alert, Oriented X3, Cooperative, No Acute Distress HEENT: Atraumatic, PERRLA Respiratory: Clear to Auscultation, Normal Air Movement Cardiovascular: Regular Rate, Normal S1, Normal S2, No Murmurs Abdominal: Normal Bowel Sounds, Soft, No Tenderness, No Hepatosplenomegaly, No Masses Extremities: No Clubbing, No Cyanosis, No Edema, Normal Pulses, No Tenderness/Swelling Skin: No Rashes, No Breakdown, No Significant Lesion Neuro: Normal Gait, Normal Speech, Strength at 5/5 X4 Ext, Normal Tone, Sensation Intact Psych/Mental Status: Mental Status NL, Mood NL Results Labs Labs Laboratory Tests 07/31/20 13:47: Glucometer 114H 07/31/20 13:48: White Blood Count 8.9, Red Blood Count 4.64, Hemoglobin 15.3, Hematocrit 45, Mean Corpuscular Volume 97, Mean Corpuscular Hemoglobin 33, Mean Corpuscular Hemoglobin Concent 34, Red Cell Distribution Width 12.4, Platelet Count 245, Mean Platelet Volume 9.4, Immature Granulocyte % (Auto) 0, Neutrophils (%) (Auto) 46, Lymphocytes (%) (Auto) 42, Monocytes (%) (Auto) 6, Eosinophils (%) (Auto) 5, Basophils (%) (Auto) 1, Neutrophils # (Auto) 4.1, Lymphocytes # (Auto) 3.7, Monocytes # (Auto) 0.5, Eosinophils # (Auto) 0.4H, Basophils # (Auto) 0.1, Immature Granulocyte # (Auto) 0.0, Prothrombin Time 13.9, INR Comment 1.0, Activated Partial Thromboplast Time 34, D-Dimer 1.11H, Sodium Level 138, Potassium Level 4.2, Chloride Level 107, Carbon Dioxide Level 19L, Anion Gap 12, Blood Urea Nitrogen 20H, Creatinine 1.39H, Estimat Glomerular Filtration Rate 50, BUN/Creatinine Ratio 14, Glucose Level 115H, Calcium Level 10.3H, Corrected Calcium 10.1, Total Bilirubin 0.3, Aspartate Amino Transf (AST/SGOT) 21, Alanine Aminotransferase (ALT/SGPT) 24, Alkaline Phosphatase 63, Troponin I 0.047H, Total Protein 7.6, Albumin 4.3, Serum Alcohol < 10 07/31/20 14:13: Urine Color YELLOW, Urine Clarity CLEAR, Urine pH 6.0, Urine Specific Nelson 1.020, Urine Protein NEGATIVE, Urine Glucose (UA) NEGATIVE, Urine Ketones NEGATIVE, Urine Nitrite NEGATIVE, Urine Bilirubin NEGATIVE, Urine Urobilinogen 0.2, Urine Leukocyte Esterase NEGATIVE, Urine RBC (Auto) NEGATIVE, Urine RBC NONE, Urine WBC NONE, Urine Squamous Epithelial Cells RARE, Urine Crystals PRESENTH, Urine Calcium Oxalate Crystals FEWH, Urine Bacteria NEGATIVE, Urine Casts NONE, Urine Mucus NEGATIVE, Urine Culture Indicated NO, Urine Opiates Screen NEGATIVE, Urine Oxycodone Screen NEGATIVE, Urine Methadone Screen NEGATIVE, Urine Propoxyphene Screen NEGATIVE, Urine Barbiturates Screen NEGATIVE, Ur Tricyclic Antidepressants Screen NEGATIVE, Urine Phencyclidine Screen NEGATIVE, Urine Amphetamines Screen NEGATIVE, Urine Methamphetamines Screen NEGATIVE, Urine Benzodiazepines Screen NEGATIVE, Urine Cocaine Screen NEGATIVE, Urine Cannabinoids Screen NEGATIVE 07/31/20 19:20: Troponin I 0.051H 08/01/20 05:35: White Blood Count 6.1, Red Blood Count 4.29L, Hemoglobin 14.0, Hematocrit 42, Mean Corpuscular Volume 98, Mean Corpuscular Hemoglobin 33, Mean Corpuscular Hemoglobin Concent 33, Red Cell Distribution Width 12.5, Platelet Count 214, Mean Platelet Volume 9.7, Immature Granulocyte % (Auto) 0, Neutrophils (%) (Auto) 41L, Lymphocytes (%) (Auto) 44, Monocytes (%) (Auto) 8, Eosinophils (%) (Auto) 6, Basophils (%) (Auto) 1, Neutrophils # (Auto) 2.5, Lymphocytes # (Auto) 2.7, Monocytes # (Auto) 0.5, Eosinophils # (Auto) 0.4H, Basophils # (Auto) 0.1, Immature Granulocyte # (Auto) 0.0, Sodium Level 140, Potassium Level 4.4, Chloride Level 113H, Carbon Dioxide Level 17L, Anion Gap 10, Blood Urea Nitrogen 19H, Creatinine 1.20, Estimat Glomerular Filtration Rate 60, BUN/Creatinine Ratio 16, Glucose Level 104, Calcium Level 9.5, Corrected Calcium 9.7, Total Bilirubin 0.3, Aspartate Amino Transf (AST/SGOT) 19, Alanine Aminotransferase (ALT/SGPT) 21, Alkaline Phosphatase 58, Total Protein 6.4, Albumin 3.7, Triglycerides Level 141, Cholesterol Level 193, LDL Cholesterol Direct 152H, VLDL Cholesterol 28, HDL Cholesterol 41 A/P-Cardiology Admission Diagnosis Non-ST elevation myocardial infarction Palpitation TIA Hypertensive emergency Admission Status: Inpatient Order (span 2 midnights) Reason for Inpatient Admission: Non-ST elevation myocardial infarction Assessment/Plan TIA, left side numbness. Was severely hypertensive, blood pressure is back to normal. Patient is admitted and monitored and feeling better. CT of the head was negative. It is considered cryptogenic stroke, patient will be starting on aspirin and planning to proceed with loop recorder implant Palpitation for the past 2 days. Questionable underlying atrial fibrillation. No signs of atrial fibrillation at this time. I am planning to implant a loop monitor Non-ST elevation myocardial infarction, mild elevation in troponin, multiple risk factors for coronary artery disease we discussed the management plan with the patient, recommended cardiac catheterization versus stress test as an outpatient. Patient has multiple risk factors with elevated troponin and agreed on proceeding with a cardiac catheterization, all pros and cons were explained. Hypertensive emergency, blood pressure was 180/110 on admission through the emergency room, blood pressure is better at this time. Continue to monitor next Hyperlipidemia, maintained on Lipitor 10 mg daily, LDL 152, I will increase Lipitor to 20 mg daily Diabetes mellitus, has been on metformin which will be held for now I will evaluate carotid ultrasound Tobaccoism, educated on smoking cessation Hospital course: Patient was monitored overnight, had mild elevation in troponin, cardiac catheterization was carried out showing [id number] coronary artery disease, I am planning to implant a loop monitor, increase Lipitor to 20 mg daily and add lisinopril 10 mg daily and aspirin 81 mg daily and discharged today. Final diagnosis Type II myocardial infarction secondary to severe hypertension TIA Hyperlipidemia Coronary artery disease Diabetes mellitus Clinical Quality Measures DVT/VTE Risk/Contraindication: Risk Factor Score Per Nursin RFS Level Per Nursing on Admit: 4+=Very High SIMA,BASHAR J MD Aug 01, 2020 9:06 am
--- NOTE | 2020-08-01 09:06 | Cardiac Procedure Note-CS/ASA ---
Pre-Procedure Note Pre-Op Procedure Note H&P Reviewed The H&P was reviewed, patient examined and no changes noted. Date H&P Reviewed: Aug 01, 2020 Time H&P Reviewed: 09:06 Conscious Sedation Pre-Proced Time 09:06 ASA Score 3 For ASA 3 and 4: Consider anesthesia and medical clearance. Also, for patients with a history of failed moderate sedation consider anesthesia. Airway Lungs Heart ASA score ASA 1: a normal healthy patient ASA 2: a patient with a mild systemic disease (mid diabetes, controlled hypertension, obesity x ASA 3: a patient with a severe systemic disease that limits activity (angina, COPD, prior Myocardial infarction) ASA 4: a patient with an incapacitating disease that is a constant threat to life (CHF, renal failure) ASA 5: a moribund patient not expected to survive 24 hrs. (ruptured aneurysm) ASA 6: a declared brain- patient whose organs are being harvested. For emergent operations, add the letter E after the classification Mallampati Classification Grade 3 Sedation Plan Analgesia, Amnesia, Plan communicated to team members, Discussed options with patient/fam, Discussed risks with patient/fam The patient is an appropriate candidate to undergo the planned procedure, sedation, and anesthesia. The patient immediately re-assessed prior to indication. DEBO GAO MD Aug 01, 2020 09:06
[2020-08-01] MEDS ORDERED: lisINopril 10 MG (PRINIVIL) TABLET ONE (09:13)
[2020-08-01] MEDS ORDERED: METF-865 PO ×2 (09:14→10:09)
[2020-08-01] MEDS ORDERED: LISI10TA2 PO (10:09)
[2020-08-01] MEDS ORDERED: ATOR20TA66 PO (10:09)
[2020-08-01] MEDS ORDERED: ASPI-1238 PO (10:09)
--- NOTE | 2020-08-01 10:10 | Discharge Inst-Post CATH ---
Discharge Inst-CATH/EP Problems Reviewed?: Yes Post Cardiac Cath/EP D/C Inst Follow Up/Plan Hold metformin for [address] Cordero's office in one week <b>CARDIAC CATH/EP PROCEDURE DISCHARGE INSTRUCTIONS</b> ACTIVITY * Go Home directly and rest. * Limit activity of the leg (or wrist if it was used) for 7 days including aerobics, swimming, jogging, bicycling, etc. * Restrict stair-climbing for 7 days if possible, if not, climb up with your non-cath leg, then bring together on the same step. * Avoid lifting, pushing, pulling or excessive movement of the affected extremity for 7 days. * Customary sexual activity may be resumed after 2 days-use caution not to use a position that strains or causes pain to the affected extremity. * No driving for 24 hours. * NO SMOKING. * Avoid straining for bowel movements for 7 days. * Gentle walking on level ground is allowed. * Returning to work will depend on the type of procedure and the results. Your doctor will discuss this with you. CALL YOUR DOCTOR FOR ANY OF THE FOLLOWING: *If bleeding from the puncture site occurs- Apply gentle pressure to site with clean cloth and call your doctor or EMS. * If a knot or lump forms under the skin, increases in size, or causes pain. * If bruising appears to be worsening or moving further down your leg instead of disappearing. * Temperature above 101 F. CARE OF YOUR GROIN INCISION; * Bruising or purple discoloration of the skin near the puncture site is common. * You may shower only, no bathtub bathing for 5 days. Be careful to avoid slipping as your leg may feel stiff. * If a closure device was used on your femoral artery, please see the attached guide regarding care of the device and your leg. * Leave dressing on FOR 24 hours. CARE OF YOUR WRIST INCISION; * Bruising or purple discoloration of the skin near the puncture site is common. * You may shower. * DO NOT submerge wrist. * Leave dressing on FOR 24 hours. DEBO CORDERO MD Aug 01, 2020 10:09 am
--- NOTE | 2020-08-01 10:13 | Cardiac Cath Report ---
Cardiac Cath Report Physician (s)/Ironworker (s) Physician DEBO GAO MD Pre-Procedure Diagnosis Pre-Procedure Diagnosis: coronary artery disease Post-Procedure Note Procedure Start Date: Aug 01, 2020 Name of Procedure: Left heart catheterization Left ventriculogram Aortic arch angiogram Findings/Procedure Note PROCEDURE NOTE: 70 years old gentleman with history of diabetes mellitus, hyperlipidemia and hypertension admitted with TIA, had elevation in troponin and had severely elevated blood pressure in the emergency room. Discussed the management plan recommended cardiac catheterization. After explaining the procedure to the patient, all pros and cons were explained, all questions were answered. The patient signed the consent and then he was placed on the cardiac catheterization laboratory. Groin was prepped SL fashion local anesthesia was used. Sheath placed in the right femoral artery. Lorrie right and left catheter were used to access the coronary system. Pigtail was used to access the left ventricular cavity. Left ventriculogram was done Aortic arch angiogram was done to evaluate the aortic arch and great vessels of the neck due to the recent stroke At the end of the procedure the sheath was removed. Closure device was deployed FINDINGS: Hemodynamics LV 109/13, end-diastolic pressure of 13 Aorta 112/65 mean of 84 ANATOMY: Left Main is free of obstructive disease Left Anterior Descending has mild disease nonobstructive disease Left Circumflex has 40-50 percent stenosis at the midportion nonobstructive disease Right Coronory Artery is dominant artery with no obstructive disease LV Gram is normal in size with normal contraction of the estimated ejection fraction 55 percent Aorta evaluation showed hypertensive changes in the thoracic aorta, no dissection or aneurysm, origin of the brachiocephalic artery, left carotid and left subclavian arteries were normal CONCLUSION: 1. [id number] coronary artery disease, nonobstructive disease, 50 percent stenosis in the mid circumflex artery nonobstructive disease 2. Normal left ventricular size, EF 55 percent 3. Normal aortic arch and great vessels of the neck DISCUSSION AND RECOMMENDATION: Maximizing medical therapy is recommended no intervention is warranted Anesthesia Type: Conscious Sedation Estimated blood loss (mL): 15 ml Contrast Amount: 49 ml Total Radiation Dose: 411 mGy Post-Procedure Diagnosis Post-operative diagnosis: Coronary artery disease Hypertension Hyperlipidemia Diabetes mellitus DEBO GAO MD Aug 01, 2020 10:13 am
[2020-08-01] MEDS ORDERED: PATIENT MAY USE OWN MEDS, ALL PO SCH (10:15)
--- NOTE | 2020-08-01 10:36 | NUR ---
SPOKE WITH THE PT AND WENT THRU THE EXT MED HISTORY TO COMPLETE THE MED REC ACCORDING TO THE PT HE ONLY TAKES METFORMIN ER 500MG, HOWEVER HE HAS BEEN PRESCRIBED ATORVASTATIN 10MG AND ENALAPRIL 5MG BUT BOTH WERE LAST FILLED IN JULY 2019 FOR 90 DAY SUPPLIES. PT ADMITTED HE HAS QUIT TAKING THEM DUE TO "FEELING OFF" WHEN HE TAKES THEM.
--- NOTE | 2020-08-01 14:00 | Implantation of Loop Monitor ---
Implant of Loop Monitior IMPLANTATION OF LOOP MONITOR REPORT DATE OF PROCEDURE: 08/01/20 PREOP DIAGNOSIS: Cryptogenic stroke PROCEDURE DETAILS: The patient is a 70 male with cryptogenic stroke, recurrent palpitation for 48 hours prior to the stroke requiring long-term surveillance for atrial fibrillation. Therefore implantable loop recorder was discussed and agreed with the patient. Informed consent was taken. All risks and complications were discussed at length. The patient was draped and prepped in the usual sterile fashion. Local anesthesia was lidocaine, which was given in the substernal area close to the 4th intercostal space. Loop monitor [employer] with serial number [id number] was implanted according to the protocol. Steri-Strips were placed at the end of the procedure. There were no complications and the patient tolerated the procedure well. The device was interrogated with a voltage of. ANESTHESIA: Local anesthesia with lidocaine. COMPLICATIONS: None CONTRAST/FLUOROSCOPY: None CONCLUSION: Successful implantation of Loop monitor with no complication FINAL DIAGNOSIS: Cryptogenic stroke Palpitation Hypertension Hyperlipidemia DEBO GAO MD Aug 01, 2020 2:00 pm
[2020-08-02] MEDS ORDERED: lisINopril 10 MG (PRINIVIL) TABLET PO SCH (09:00)
== END 2020-08-01 16:15 | disposition home or self-care (01) ==
LOC: EDUNIT# 13:44 → ER 13:45 → UNDOADMIN 15:18 → 4TH 15:18 → EDLOC 15:18 → UNDOADMOB 15:18 → 4TH 16:05 → CATH 16:05 → UNDODISOB 08-01 16:15
PROVIDERS: ATTEND Internal Medicine Cardiovascular Disease
DX: I25.10 Atherosclerotic heart disease of native coronary artery without angina pectoris (principal); I10 Essential (primary) hypertension; E78.5 Hyperlipidemia, unspecified; E11.9 Type 2 diabetes mellitus without complications; G45.9 Transient cerebral ischemic attack, unspecified; E78.00 Pure hypercholesterolemia, unspecified; I21.4 Non-ST elevation (NSTEMI) myocardial infarction; I16.1 Hypertensive emergency; Z79.899 Other long term (current) drug therapy; Z87.891 Personal history of nicotine dependence
CPT/HCPCS: 33285; 36221; 70450; 71045; 80053 ×2; 80061; 80306; 81000; 82962; 84484; 85025 ×2; 85379; 85610; 85730; 93005; 93041; 93306; 93458; 99284; C1760; C1764; C1894; G0378; G0480; 36415; 80320